=== PATIENT | female | born 1935 | race Caucasian/White ===

== ENCOUNTER 2022-11-15 14:19 | Emergency (ER) | payer OTHER, SELFPAY ==
[2022-11-15 14:35] VITALS: BP 93/61; PULSE 69; RESP 18; O2SAT 99
--- NOTE | 2022-11-15 15:09 | ED.GENADUL_ITS ---
Discharge Plan Disposition Patient Disposition: Home Condition: Stable Discharge Details Clinical Impression: Pain, dental, Homelessness ED Provider: Mando Bocanegra Home Meds and New Rx's Prescriptions: New penicillin V potassium 500 mg tablet 500 mg PO QID Qty: 40 0RF Continued diltiazem HCl 360 mg capsule,extended release 24hr 360 mg PO 1XD Patient Comments: take 1 capsule (360MG TOTAL) by mouth once daily metoprolol succinate 25 mg Tablet Extended Release 24 Hr 25 mg PO 2XD Eliquis 2.5 mg Tablet 2.5 mg PO 2XD Discharge Instructions Instructions: Toothache (ED) Additional Instructions: If you are going to be relocating to the area, please establish care with a primary care physician. Please follow-up with a dentist regarding your dental pain. Take full course of antibiotic as prescribed. Return to the ER immediately for any worsening or new concerning symptoms. Discharge Data Discharge Date/Time-TO BE ENTERED AT DEPARTURE: 11/15/22 16:07 Medical Decision Making 87-year-old female here with dental pain. Patient has had dental infections in the past. Plan to initiate treatment with penicillin. I have advised the patient to follow-up with her dentist or establish care in the area if she is going to be relocating here. Patient is homeless and recently arrived in this area. She has been plugged in with community resources. Care management is aware of case and working with community resources. Patient has no additional complaints or requests. Plan for discharge with outpatient follow-up. Disposition decision was made weighing the risks and benefits of hospitalization versus outpatient treatment, the risk for further decompensation, and the patient's wishes. The patient was stable and requested discharge. Prior to discharge, my usual and customary return precautions were reviewed with the patient - this included follow-up instructions and reason to return to the emergency department if co ndition worsens, does not improve as expected, or other new concerns arise. HPI General Mode of arrival: ambulatory . Date/Time Provider Initiated Documentation: 11/15/22 14:39 . Limitations to Documentation: no limitations . Information obtained by: patient . HPI Narrative: 87-year-old female presents with chief complaint of dental pain. Patient notes she is a dental pain persistent over the past week. She states she has had dental infections in the past that responded to antibiotics. Patient requesting prescription for antibiotics. She has no other complaint. Patient is homeless at this time. She is plugged in with community resources. Related Data Home Medications Medication Instructions Recorded Confirmed apixaban 2.5 mg tablet (Eliquis) 2.5 mg PO 2XD 11/15/22 11/15/22 diltiazem HCl 360 mg 360 mg PO 1XD 11/15/22 11/15/22 capsule,extended release 24 hr metoprolol succinate 25 mg 25 mg PO 2XD 11/15/22 11/15/22 tablet,extended release 24 hr penicillin V potassium 500 mg 500 mg PO QID #40 tabs 11/15/22 tablet Previous Rx's Medication Instructions Recorded penicillin V potassium 500 mg 500 mg PO QID #40 tabs 11/15/22 tablet General Stated Complaint: GenMedical LAQUITA: 4 Review of Systems Constitutional Constitutional: Denies fever(s) Cardiovascular Cardiovascular: Denies dyspnea Respiratory Respiratory: Denies dyspnea Gastrointestinal Gastrointestinal: Denies abdominal pain PFSH All Active Problems Pain, dental (Acute) Homelessness (Acute) Social History Smoking risk assessment performed?: No Exam Const General: cooperative and no acute distress HENMT Head: atraumatic Mouth: moist mucous membranes Teeth and gingiva: poor dentition Throat: posterior oropharynx normal, tonsils normal and uvula midline Other: No fluctuance; no trismus Eyes Conjunctivae: normal conjunctivae Sclera: normal sclerae Neck Neck: supple Resp Auscultation: clear to auscultation bilaterally, no rales, no rhonchi and no wheezes Cardio Rate: regular rate and not tachycardic Rhythm: regular rhythm Skin General skin exam: no rashes or lesions noted Neuro General: patient alert, patient awake, patient oriented x3 and tone normal Cognition: normal cognition Extrem General: no edema Psych Appearance: grossly normal Mental Status: mental status grossly normal Course Vital Signs Vital signs: Vital Signs Pulse 69 11/15/22 14:35 Respiratory Rate 18 11/15/22 14:35 Blood Pressure 93/61 L 11/15/22 14:35 Pulse Oximetry 99 11/15/22 14:35 Temperature Source Skin 11/15/22 14:35 Pulse 69 11/15/22 14:35 Respiratory Rate 18 11/15/22 14:35 Blood Pressure 93/61 L 11/15/22 14:35 Blood Pressure Position Sitting 11/15/22 14:35 Pulse Oximetry 99 11/15/22 14:35 Oxygen Delivery Method Room Air 11/15/22 14:35 Oxygen Flow Rate 0 11/15/22 14:35 Pain Level 0 11/15/22 14:35
[2022-11-15] MEDS: Penicillin V POTASSIUM 500 MG TAB PO (16:00)
--- NOTE | 2022-11-15 16:03 | CMPROGNOTE_ITS ---
Date of service: 11/15/22 Time of Service: 16:03 Care Management Progress Note Progress Note Text Progress Note Text: [facility] brings Kristina to [facility] ED for medical clearance. The plan is for [facility] to assess her and to make a referral to a crisis bed, if patient is deemed appropriate. Judith, [facility] Crisis Screener, comes to the hospital to assess Kristina but patient refuses to speak with her so assessment can not be completed. Patient is discharged from the ED as she is medically cleared. Prior to Judith's arrival at the hospital, CHAR along with Jade, charge nurse, and Jax (?), the [facility] employee who transported Kristina to the hospital, contact Jacob Haroon of [facility] by telephone to further discuss plan if she is found inappropriate for a crisis bed. Jacob Patiño advises to ask patient where she would like to go and to act according to her wishes, as she is her own person and makes her own decisions. When CHAR meets with Kristina, she demands to know why [facility] left her at the hospital and makes it quite clear that she does not wish to remain at [facility]. Together we contact [facility] but are unable to connect with Jax. At patient's request, CHAR arranges a ride to [facility] via [employer].
--- NOTE | 2022-11-15 16:03 | PDOC.CMPRO ---
Date of service: 11/15/22 Time of Service: 16:03 Care Management Progress Note Progress Note Text Progress Note Text: [facility] brings Kristina to [facility] ED for medical clearance. The plan is for [facility] to assess her and to make a referral to a crisis bed, if patient is deemed appropriate. Judith, [facility] Crisis Screener, comes to the hospital to assess Kristina but patient refuses to speak with her so assessment can not be completed. Patient is discharged from the ED as she is medically cleared. Prior to Judith's arrival at the hospital, CHAR along with Jade, charge nurse, and Jax (?), the [facility] employee who transported Kristina to the hospital, contact Jacob Haroon of [facility] by telephone to further discuss plan if she is found inappropriate for a crisis bed. Jacob Patiño advises to ask patient where she would like to go and to act according to her wishes, as she is her own person and makes her own decisions. When CHAR meets with Kristina, she demands to know why [facility] left her at the hospital and makes it quite clear that she does not wish to remain at [facility]. Together we contact [facility] but are unable to connect with Jax. At patient's request, CHAR arranges a ride to [facility] via [employer].
== END 2022-11-15 16:07 | disposition home or self-care (01) ==
PROVIDERS: Emergency Provider Student in an Organized Health Care Education/Training Program
DX: Z59.00 Homelessness unspecified (principal); R68.84 Jaw pain
CPT/HCPCS: 99283

== ENCOUNTER 2022-12-23 17:33 | Emergency (ER) | payer OTHER, SELFPAY ==
--- NOTE | 2022-12-23 17:40 | ED.GENADUL_ITS ---
Discharge Plan Disposition Patient Disposition: Home Condition: Good Discharge Details Clinical Impression: Chronic dental infection ED Provider: Gurwinder Cash Nimitz Meds and New Rx's Prescriptions: Continued penicillin V potassium 500 mg tablet 500 mg PO QID Qty: 40 0RF diltiazem HCl 360 mg capsule,extended release 24hr 360 mg PO 1XD Patient Comments: take 1 capsule (360MG TOTAL) by mouth once daily metoprolol succinate 25 mg Tablet Extended Release 24 Hr 25 mg PO 2XD Eliquis 2.5 mg Tablet 2.5 mg PO 2XD Discharge Instructions Additional Instructions: You were seen requesting penicillin due to chronic dental infection. 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 It is imperative that you find a primary care as well as dental care if you are going to stay in the area. You should return to ED if you develop fever, difficulty breathing, inability to swallow or open mouth. Medical Decision Making Patient presenting to ED requesting penicillin for dental/mouth pain which she has had previously. She was here in October with same complaint. She will not allow vital signs to be performed. She did allow me to at least look in her mouth has no obvious swelling, abscess but there is poor dentition. She is in no distress. Breathing is normal. I cannot exclude a dental infection so reasonable to start her on penicillin given her complaint of pain and poor dentition. She does continue to not have primary care or dental care since moving to the area back in October. She had been referred to case management previously. She is encouraged to obtain primary care and dental care in the area or if she is staying. HPI General Mode of arrival: EMS . Date/Time Provider Initiated Documentation: 12/23/22 17:40 . Information obtained by: patient . HPI Narrative: Patient presents to ED by EMS with request for penicillin to treat recurrent mouth infection. Patient would not allow nursing to obtain vital signs. Patient reports that it is not any one particular tooth but just pain involving all of her teeth and mouth. She states that he cannot see it at all but that the pain has been worsening since she finished penicillin prescribed for her back in October. She does not answer other questions. She does state that she has a history of atrial fibrillation. Related Data Home Medications Medication Instructions Recorded Confirmed apixaban 2.5 mg tablet (Eliquis) 2.5 mg PO 2XD 11/15/22 11/15/22 diltiazem HCl 360 mg 360 mg PO 1XD 11/15/22 11/15/22 capsule,extended release 24 hr metoprolol succinate 25 mg 25 mg PO 2XD 11/15/22 11/15/22 tablet,extended release 24 hr penicillin V potassium 500 mg 500 mg PO QID #40 tabs 12/23/22 tablet Previous Rx's Medication Instructions Recorded penicillin V potassium 500 mg 500 mg PO QID #40 tabs 12/23/22 tablet General LAQUITA: 4 Review of Systems Narrative: Does not answer PFSH All Active Problems (Updated 12/23/22 @ 18:08 by Gurwinder Cash MD) Chronic dental infection (Acute) Medical History (Updated 12/23/22 @ 18:08 by Gurwinder Cash MD) Atrial fibrillation Social History (Updated 12/23/22 @ 18:01 by Gurwinder Cash MD) Smoking risk assessment performed?: No Housing: other Details: currently living in hotel Exam Narrative Exam Narrative: Const: WDW[facility] elderly female in [facility]. HEENT: NC/AT. Normal facial exam. No facial swelling or erythema. Poor dentition in general. No obvious abscess. Neck: Supple. Trachea midline. Lungs: Normal respiratory effort. Neuro: A+O x 3. Normal speech, mentation, gait. Cranial nerves II - XII grossly intact. No gross motor or sensory deficit. Ext: No C/C/E. Skin: Warm and dry without rash.
--- NOTE | 2022-12-23 17:44 | NUR.NOTE ---
Nursing Note: This attempted to conduct triage. Pt began yelling and stated get the doctor, you are not the doctor! Pt refused vitals.
[2022-12-23] MEDS: Penicillin V POTASSIUM 500 MG TAB, 4 TABS/BTL PO (18:22)
--- NOTE | 2022-12-24 09:32 | NUR.NOTE ---
Patient requesting information on her prescription that was [place] to [facility] [place]
--- NOTE | 2022-12-24 14:10 | NUR.NOTE ---
Nursing Note:In patients chart for and full name for [facility] prior to coming to assess.
== END 2022-12-23 22:09 | disposition home or self-care (01) ==
LOC: ER 18:27
PROVIDERS: Emergency Provider Emergency Medicine
DX: K04.7 Periapical abscess without sinus (principal)
CPT/HCPCS: 99283; 99284

== ENCOUNTER 2022-12-24 15:17 | Emergency (ER) | payer OTHER, SELFPAY ==
--- NOTE | 2022-12-24 15:30 | NUR.NOTE ---
Nursing Note: Patient was discharged from here last night for a medical problem. After discharge patient refused to leave facility. Myself as ED charge nurse and Asha as warehouse director spoke with patient this morning about her options. We informed her that there was no medical reason for her to be here. Patient is homeless. We reached out to care management and [employer]. Care management offered to pay for a taxi to transport her somewhere locally. Economic services and [facility] have dealt with patient about her homelessness. Patient is blind. She previously advised [address] that she was independent. The only thing she would need would be for someone explain the layout of the motel room. While at 4 different motels she demanded staff to help her with her ADLs. [address] stated that they would be willing to provide a motel room if she had someone to stay with her. Patient does not have any friends. Family refuses to help her. Per request of senior oracle database administrator police communications dispatcher today, [facility] asked to evaluate patient to rule out any mental health reasons for her refusing to leave. Throughout the day patient has been demanding staff assist her with her belongings, charging her phone. I informed patient that staff have their primary jobs to do. She is not a patient here and is welcome to leave. We would pay for the taxi trip anywhere locally. Patient becomes very upset yelling at me that i am not listening to her. I have explained numerous times that we are attempting to find placement for her. However she has declined all options. 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 I spoke to patient again about her behavior and to please stop yelling. Patient has been kept up to date on finding her placement. Each time patient yells at myself and Asha. While on the phone with [employer], patient stated that they were lying about her needing help with her ADLs. Patient continued to focus on the conversation with [address] when myself and Asha spoke with patient about speaking with mental health. Patient yelled at us for not helping her. Patient also has a cell phone. I asked if she could contact anyone to come get her. She yelled at me about her being blind and unable to use it. Later in the day i spoke with her about a taxi coming to bring her to the pharmacy and anywhere else locally. She agreed to a ride to the pharmacy. She requested I give her the phone number to [facility] so she could call them later from her phone.
--- NOTE | 2022-12-24 16:46 | W.ED.GENAD ---
Discharge Plan Discharge Details Chief Complaint: PsychEval Primary Care Provider: Unknown,Unknown ED Provider: Anderson Dietrich Home Meds and New Rx's Prescriptions: No Action penicillin V potassium 500 mg tablet 500 mg PO QID Qty: 40 0RF diltiazem HCl 360 mg capsule,extended release 24hr 360 mg PO 1XD Patient Comments: take 1 capsule (360MG TOTAL) by mouth once daily metoprolol succinate 25 mg Tablet Extended Release 24 Hr 25 mg PO 2XD Eliquis 2.5 mg Tablet 2.5 mg PO 2XD Medical Decision Making 87-year-old lady was seen nearly in the emergency department discharge. Patient unwilling to the hospital premises. Patient needs to be read registered for psychiatric evaluation in the emergency department. She is 87 years old, homeless, has had over 70 emergency department visits in various hospitals in the area. Has there is restraining orders against her by various hospitals as well as the airport in [place]. Patient is blind and homeless. It is unclear to me how she got to the [facility]. Psychiatric evaluation pending 6:30 PM. The patient has been evaluated by mental health. Appears that this is all a behavioral issue. Patient is well-known to this service. The plan at this point is for the patient to be given 2 options: A respite bed for discharge and removed from the premises. I have asked that the respite bed be found for the patient and if she refuses to go to the respite bed then at least 1 week call the police she can be removed from the grounds and escorted by police to the respite bed. If she refuses the respite once she is there then I believe that we have exhausted all of our resources. HPI General Date/Time Provider Initiated Documentation: 12/24/22 16:46. HPI Narrative: Mrs. Gonzalez is an 87-year-old lady who was discharged earlier from the emergency department. She waited in the waiting room, refusing to breathing the hospital property ground, stating that the hospital was under the obligation of making sure that we had transportation to local pharmacy where she could cigar packer and picker her prescriptions, and then be transported initially to [place] [id number] and then she changed her mind and wanted to be transported as close as possible to [facility]. The reason to go to [facility] is to be transported to [place] where she can go see her son. She does not have any medical complaints. She was reregistered for the sake of a mental health evaluation after nursing vendor quality supervisor contacted the junior linux administrator on-call who then contacted the hospital you lower your who requested that the patient have a psych evaluation. Related Data Home Medications Medication Instructions Recorded Confirmed apixaban 2.5 mg tablet (Eliquis) 2.5 mg PO 2XD 11/15/22 12/24/22 diltiazem HCl 360 mg 360 mg PO 1XD 11/15/22 12/24/22 capsule,extended release 24 hr metoprolol succinate 25 mg 25 mg PO 2XD 11/15/22 12/24/22 tablet,extended release 24 hr penicillin V potassium 500 mg 500 mg PO QID #40 tabs 12/23/22 12/24/22 tablet Previous Rx's Medication Instructions Recorded penicillin V potassium 500 mg 500 mg PO QID #40 tabs 12/23/22 tablet General Stated Complaint: PsychEval LAQUITA: 2 PFSH All Active Problems (Updated 12/23/22 @ 18:08 by Gurwinder Cash MD) Chronic dental infection (Acute) Medical History (Updated 12/23/22 @ 18:08 by Gurwinder Cash MD) Atrial fibrillation Social History (Updated 12/23/22 @ 18:01 by Gurwinder Cash MD) Smoking risk assessment performed?: No Housing: other Details: currently living in hotel Additional Social history: homeless Course Vital Signs Vital signs: Respiratory Effort Normal, Non-Labored 12/24/22 15:29
[2022-12-24 18:28] VITALS: BP 118/80; PULSE 72; TEMP 37.2; O2SAT 97
[2022-12-24] MEDS: Penicillin V POTASSIUM 500 MG TAB 1000 MG PO (19:07)
--- NOTE | 2022-12-24 19:13 | NUR.NOTE ---
given her penicillin and tuna sandwich and water. mental health is with her at this time.. Nursing Note:
--- NOTE | 2022-12-24 23:01 | PDOC.MHCN_ITS ---
Date of service: 12/24/22 Time of Service: 18:35 Mental Health Emergency Note Release [facility] release signed:: Yes Reason for Visit Homeless, client reported she needed medication for her mouth. In the last 2 weeks has the pt presented for ES prior to today?: No (No, but she was at [facility] on 11/15/22. ) Client Information Client is: New (She refused to engage with services when offered.) Risk: Does risk to harm exist?: No Asssessment/Mental Status Appearance: Disheveled Attitude: Demanding Behavior: Agitated Speech: Loud Affect: Other (Her demeanor softened a bit when she had food. ) Mood: Irritable, Angry and Other (did not answer. ) Thought process: Circumstational Hallucinations: No evidence Delusions: yes, Quaker and Persectory/Paranoid Attention: Unremarkable Perception: Not impaired Memory: Impaired in: (Difficult to assess.) Recent Insight: Poor Judgement: Poor Neurovegetative Symptoms Appetitie: No change (Would not answer. She ate a tuna sandwich and asked for more food. ) Additional Issues: Assaultive/Threatening Behavior: Yes Medical Concerns: No Client engaged in active self harm w/weapon: No Threatening to run away: No Voluntarily presenting for services: Yes Domestic violence is a concern: No Extreme Psychosis or extreme behavior is present: No Impression [facility] was asked to do a mental health screening for Kristina Gonzalez on 12/24/22. 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 A previous [facility] note stated that she has stayed at hospitals over one hundred times this year. She demands people do things for her, she does not answer questions to facilitate engagement with services, and she refuses assistance. She is willfull, stubborn and belligerent. She stated she wants to go to [facility] to fly to [place] to go see her son. Her son is ill. She stated that her 's estate needs to be settled in [place], [place]. She is distrustful and accusatory. She threatens to call resources (police, management) if she is dissatisfied or does not get what she wants. She knew the day and date during the MSE. Resources Reosurces reviewed and given:: Other (A care bed was discussed with Kristina. She is open to the idea. ) Plan/Disposition Recommended Disposition: Crisis bed, No. Plan: Adult Protective Services was called. The Agency of Human Services was called. Referrals to Care Beds are being made so that she has a place to go. Services need to include information and possible assistance regarding her visual impairment. Person reported agreement to plan: Yes Reports/communication Outcome discussed with: ED/Personnel (Dr. Abrams and Dr. Cash, and Nurse Aishwarya. )
--- NOTE | 2022-12-24 23:29 | PDOC.MHCN ---
Date of service: 12/24/22 Time of Service: 18:35
--- NOTE | 2022-12-25 07:59 | W.EDPROG ---
Date of service: 12/25/22 Time of Service: 07:59 Medical Decision Making Patient was signed out to me by my colleague Dr. Dietrich. Please refer to his HPI, physical exam and assessment and plan. Patient is currently here on a social component. She has been evaluated medically twice and there is no evidence of medical complication or pathology at this time. However she has a notably challenging social scenario. Patient is from [place], over the last month she has been going from hospital to hospital, and each time there is been no evidence of medical need, however she is been refusing admissions, places to stay, and other mental health social worker. She is often given a cab voucher by various institutions and allowed to then travel for which she then travels to a new town with a new hospital. She has been banned from certain regional airport secondary to behavior. She is currently here at [facility]. human services supervisor over the last 2 to 3 days have been involved with the patient, psychiatric services have also been involved. They have deemed the patient mentally clear and stable. They state that the patient's notably abrasive personality is reflective of personality and behavior choices and not reflective of dementia or psychosis. Plan at time of signout is that a care bed scenario will be sought out for the patient. She has been refusing admission and care bed placement, however the patient will be given a care better option, and per administrations recommendation if she still continues to refuse this after a care bed has been found she will then be escorted off the premises as a case of trespassing and then delivered by [facility] police to the care bed that has been found for her. If she continues to refuse to utilize that resource of the care bed then it would be on her at that point. This was the recommendation by mental health, and administrative services here yesterday per the signout physician. Patient was stable throughout the night and required no interventions. No care bed was found throughout the night and they are still searching. Patient will be signed out to my colleague for disposition once care bed is found. Throughout the night we did care for the patient's needs. We did feed her multiple times at every request that she had. She was brought to the bathroom by our assistance as well. No complications or other interventions needed otherwise. 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 She has been to several emergency departments within the area in the past few months. She has actually been on a long trespass list for several the hospitals as well as [facility] she was seen in the emergency department last night and this morning refused to leave. Hospital diesel powerplant mechanic was contacted by administration who recommended a psych evaluation. Patient was seen by psychiatry who believes that this is all behavioral in etiology. At this point there are 2 options she will be offered a respite bed for discharge from the hospital. If she refuses a respite bed, then she can be escorted to that place and then we would have exhausted all the resources. Last updated by Anderson Dietrich MD at 12/24/22 19:44 Discharge Plan Discharge Details Chief Complaint: PsychEval Primary Care Provider: Unknown,Unknown ED Provider: Javier Abrams Home Meds and New Rx's Prescriptions: No Action penicillin V potassium 500 mg tablet 500 mg PO QID Qty: 40 0RF diltiazem HCl 360 mg capsule,extended release 24hr 360 mg PO 1XD Patient Comments: take 1 capsule (360MG TOTAL) by mouth once daily metoprolol succinate 25 mg Tablet Extended Release 24 Hr 25 mg PO 2XD Eliquis 2.5 mg Tablet 2.5 mg PO 2XD
[2022-12-25 08:09] VITALS: RESP 18
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
--- NOTE | 2022-12-25 09:42 | NUR.NOTE ---
Nursing Note:Patient standing in the waiting screaming at staff, demanding for staff to make phone calls for her.Patient stated she does not want to speak with mental health. she wants staff to call and pay for a ride to [place].
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
--- NOTE | 2022-12-25 10:49 | NUR.NOTE ---
Nursing Note: Patient initially on the phone refusing to return to her room. Patient left facility. Patient is standing just outside dept. Refusing to return. Dr. Garza, myself, security and general warehouse worker with patient. Patient refusing to return. spoke with patient about the risks for her to leave. Patient offered us to help her wiht somewhere safe for her to be as well as get her prescription from [facility]. Patient is outside being disruptive. Per Dr. Lawson staff is to return to the dept. [facility] contacted. Dispatch was not sure of how they were able to help. Patient grabbed DI tech by the arm demanding she assist patient of hospital grounds.
--- NOTE | 2022-12-25 11:12 | NUR.NOTE ---
Nursing Note: Patient has eloped from the dept
== END 2022-12-25 11:11 | disposition left against medical advice (07) ==
PROVIDERS: Emergency Provider Emergency Medicine
DX: Z59.00 Homelessness unspecified (principal)
CPT/HCPCS: 99283

== ENCOUNTER 2022-12-25 13:06 | Inpatient (IN) | payer OTHER, SELFPAY ==
--- NOTE | 2022-12-25 13:15 | DI.RAD_ITS ---
Exam(s) XR CHEST 1V IN DI DEPT EXAM: XR CHEST 1V IN DI DEPT exam is limited by poor pulmonary inflation. The left diaphragm is mil dly elevated. CLINICAL HISTORY: ams TECHNIQUE: 2D digital imaging was performed. COMPARISON: No exams were available for comparison FINDINGS: LUNGS: Clear. No pleural abnormality seen. HEART: Normal size. AORTA: Normal diameter. BONES: Scoliosis and degenerative changes. Soft tissues: Unremarkable. IMPRESSION: No acute findings. DATA REPOSITORY: RADIATION DOSE DELIVERED:
[2022-12-25] MEDS: Haloperidol 5 MG/ML VIAL 2 MG IM (13:20)
--- NOTE | 2022-12-25 13:37 | W.ED.GENAD ---
Discharge Plan Discharge Details Chief Complaint: AMS/LOC Primary Care Provider: Unknown,Unknown ED Provider: Scar Garza Home Meds and New Rx's Prescriptions: No Action penicillin V potassium 500 mg tablet 500 mg PO QID Qty: 40 0RF diltiazem HCl 360 mg capsule,extended release 24hr 360 mg PO 1XD Patient Comments: take 1 capsule (360MG TOTAL) by mouth once daily metoprolol succinate 25 mg Tablet Extended Release 24 Hr 25 mg PO 2XD Eliquis 2.5 mg Tablet 2.5 mg PO 2XD Medical Decision Making 87-year-old female history of A-fib, was evaluated yesterday in the setting of homelessness. Patient endorses attempting to return to [place] to be with her son. Attempts to contact family were unsuccessful. Patient was evaluated by mental health screener associated with [facility]. Patient had no SI no HI no signs of psychosis and her presentation was deemed to be behavioral. An attempt was being made to obtain outpatient resources and respite bed given her age comorbidities and homelessness state. Patient repeatedly complaining about being held against her will and did not want to be here in the emergency department. Patient eloped from emergency department earlier this morning/afternoon. Patient was counseled extensively to return to the emergency department to allow us to coordinate her outpatient care we expressed her concerns for her safety given her age blindness and anticoagulant state. Again patient refused further assistance/evaluation. Given her alertness, mental status, not intoxicated state with no active psychiatric issues patient deemed competent. However over the course of several hours this morning and afternoon patient was seen wandering in the street at times crawling on her hands and knees screaming at passerby's and staff. Patient was approached by multiple staff members encouraging her to return for her own safety. Patient continued to walk in traffic and scream out at her surroundings. He has become increasingly evident over the past several hours the patient is at high risk for injury although not intentional patient has either low concern or limited conception of potential risks. For her safety and the safety of others she has been brought back into the emergency department, physically and chemically restrained. An extensive work-up was not performed upon her initial evaluation given her age and comorbidities I will obtain basic labs, CT head, screening x-ray, urine toxicology and UA; [facility] has been called again for reevaluation patient currently poorly compliant with their interview. Disposition will likely require hospitalization for coordination of placement pending results and reassessment Patient sustained superficial skin tear to dorsum of right hand during restraint as she was physically combative with staff. 14: 29 patient resting comfortably, on pulse oximeter saturating normally. Patient will be taken out of four-point restraints and bilateral rails on bed will be placed in the upright position. Awaiting labs and imaging results. [facility] has reached out to multiple organizations and attempt to find a care bed for patient. 15: 59 hand skin tear/laceration repaired with Steri-Strips and surgical glue as patient refused sutures. Wound anesthetized with L ET gel, irrigated extensively with sterile normal saline. Hemostatic no foreign body. Patient currently resting comfortably no acute distress. 19: 16 patient resting relatively comfortably intermittently yelling/screaming at staff however redirectable after several minutes not requiring any further sedation or restraints. Awaiting follow-up evaluation and recommendations from [facility]. Patient has been medically cleared. HPI General Date/Time Provider Initiated Documentation: 12/25/22 13:24. HPI Narrative: 87-year-old female history of A-fib, was evaluated yesterday in the setting of homelessness. Patient endorses attempting to return to [place] to be with her son. Attempts to contact family were unsuccessful. Patient was evaluated by mental health screener associated with [facility]. Patient had no SI no HI no signs of psychosis and her presentation was deemed to be behavioral. An attempt was being made to obtain outpatient resources and respite bed given her age comorbidities and homelessness state. Patient repeatedly complaining about being held against her will and did not want to be here in the emergency department. Patient eloped from emergency department earlier this morning/afternoon. Patient was counseled extensively to return to the emergency department to allow us to coordinate her outpatient care we expressed her concerns for her safety given her age blindness and anticoagulant state. Again patient refused further assistance/evaluation. Given her alertness, mental status, not intoxicated state with no active psychiatric issues patient deemed competent. However over the course of several hours this morning and afternoon patient was seen wandering in the street at times crawling on her hands and knees screaming at passerby's and staff. Patient was approached by multiple staff members encouraging her to return for her own safety. Patient continued to walk in traffic and scream out at her surroundings. He has become increasingly evident over the past several hours the patient is at high risk for injury although not intentional patient has either low concern or limited conception of potential risks. For her safety and the safety of others she has been brought back into the emergency department, physically and chemically restrained. Related Data Home Medications Medication Instructions Recorded Confirmed apixaban 2.5 mg tablet (Eliquis) 2.5 mg PO 2XD 11/15/22 12/25/22 diltiazem HCl 360 mg 360 mg PO 1XD 11/15/22 12/25/22 capsule,extended release 24 hr metoprolol succinate 25 mg 25 mg PO 2XD 11/15/22 12/25/22 tablet,extended release 24 hr penicillin V potassium 500 mg 500 mg PO QID #40 tabs 12/23/22 12/25/22 tablet Previous Rx's Medication Instructions Recorded penicillin V potassium 500 mg 500 mg PO QID #40 tabs 12/23/22 tablet General Stated Complaint: AMS/LOC LAQUITA: 2 Review of Systems Narrative: Review of Systems Constitutional: negative Eyes: negative ENT: negative Cardiovascular: negative Respiratory: negative Gastrointestinal: negative : negative Musculoskeletal: negative Skin: negative Neurologic: negative Psych: negative PFSH All Active Problems Chronic dental infection (Acute) Homelessness (Acute) Medical History (Updated 12/23/22 @ 18:08 by Gurwinder Cash MD) Atrial fibrillation Social History (Updated 12/23/22 @ 18:01 by Gurwinder Cash MD) Smoking/Tobacco Use Status: Never Smoking risk assessment performed?: Yes Drug use: Never Substance use type: does not use Housing: other Details: currently living in hotel Additional Social history: patient homeless Exam Narrative Exam Narrative: Physical Examination General: alert, awake, uncooperative, combative, screaming HEENT: normocephalic, atraumatic; PERRL, EOM intact, conjunctiva normal; no nasal discharge; moist mucous membranes, oral and pharyngeal mucosa normal, tolerating secretions Neck: supple, trachea midline; full ROM Chest: normal to inspection Respiratory: normal respiratory effort, speaking in full sentences, clear to auscultation, no wheezing, rales or rhonchi Cardiac: regular rate, regular rhythm, S1S2 intact, no murmurs rubs or gallops GI: abdomen soft, non-tender, non-distended; no palpable mass or hepatosplenomegaly Skin: Superficial skin tear to dorsum of right hand Neuro: Alert, interactive, moving all extremities, ambulatory without ataxia Extremities: Moving all extremities Psych: Aggressive, screaming Course Vital Signs Vital signs: Comment Pt unable to follows commands during triage. 12/25/22 13:29 Procedures Laceration Laceration 1: Site: hand Side (If applicable): right Size (cm): 7 Description: linear and flap Depth: simple, single layer Local Anesthetic: other anesthetic (LET) Pre-repair: wound explored, irrigated extensively and deep structures intact Size (cm): other (steri strips, surgical glue) Restraint Face to Face Time of Face to Face Face to Face: Time of Face to Face: 14:51 Patient's Immediate Situation Requiring Restraints/Seclusion: Harm to Patient Patient Response to Restraints: Tolerating without Problems Patient's Medical & Behavioral Condition: Patient continues to be verbally aggressive however physical aggression has calm to significantly. Patient amenable to have railings placed in upright position, will discontinue four-point physical restraints Need for Continuation of Restraints Has Been Assessed: Restraints Terminated
[2022-12-25 13:42] VITALS: BP 114/82; PULSE 130; RESP 20; O2SAT 95
[2022-12-25 14:30] VITALS: PULSE 70; RESP 16
[2022-12-25 14:38] LABS: Abs Immature Grans 0.02 10^3/uL (0.0-0.06); Absolute Basophil Count 0.08 10^3/uL (0.0-0.2); Absolute Eosinophil Count 0.09 10^3/uL (0.0-0.7); Absolute Lymphocyte Count 1.49 10^3/uL (1.2-3.4); Absolute Monocyte Count 0.48 10^3/uL (0.1-0.8); Absolute Neutrophil Count 5.93 10^3/uL (1.2-6.7); Eosinophils % 1.1; HCT 43.2 % (36.0-46.0); HGB 14.5 g/dL (11.2-15.7); Immature Grans % 0.2; Lymphocytes % 18.4; MCH 28.4 pg (27.0-33.0); MCHC 33.6 % (32.0-36.0); MCV 85 fL (80-95); MPV 11.5 fL (8.0-11.0); Monocytes % 5.9; Neutrophils % 73.4; Platelet Count 192 10^3/uL (130-400); RBC 5.11 10^6/uL (3.93-5.22); RDW 13.5 % (11.7-14.6); RDW-SD 41.9 fL; WBC 8.09 10^3/uL (4.4-10.8)
--- NOTE | 2022-12-25 14:45 | DI.CT_ITS ---
Exam(s) CT HEAD WO EXAM: CT HEAD WO CLINICAL HISTORY: ams. TECHNIQUE: Imaging Protocol: Axial computed tomography images with coronal and sagittal reformatted images were created and reviewed COMPARISON: No exams were available for comparison FINDINGS: Ventricles and Extra axial spaces: Normal in size and morphology for the patient's age. Hemorrhage: None. Cerebral parenchyma: There is no evidence of an acute territorial infarct. There are areas of decrea sed attenuation in the white matter most consistent with small vessel ischemic disease. Midline shift: None. Brainstem/Cerebellum: Normal. Calvarium: Normal. Visualized Paranasal sinuses/Mastoids: Clear. Soft Tissues: Unremarkable. IMPRESSION: No acute intracranial process. RADIATION DOSE DELIVERED: 719.88mGy.cm Total DLP DATA REPOSITORY: All CT scans at this facility are submitted to the National Radiology Data Registry (NRDR) Dose Index Registry (DIR) with the [employer] (ACR). RADIATION OPTIMIZATION: All CT scans at this facility use at least one of these dose optimization te chniques: automated exposure control; mA and/or kV adjustment per patient size (includes targeted exa ms where dose is matched to clinical indication); or iterative reconstruction.
[2022-12-25 14:58] LABS: ALT 20 U/L (14-59); AST 16 U/L (15-37); Albumin 3.8 g/dL (3.4-5.0); Alkaline Phosphatase 82 U/L (46-116); Anion Gap 11.8 mmol/L (3-11); BUN 30 mg/dL (7-18); Bilirubin, Total 0.6 mg/dL (0.2-1.0); CO2 22.2 mmol/L (21.0-32.0); CREATININE 1.2 mg/dL (0.55-1.02); Calcium 9.3 mg/dL (8.5-10.1); Chloride 106 mmol/L (98-107); Estimated GFR 44.08 (mL/min/1.73m2); Glucose 166 mg/dL (74-106); Potassium 3.4 mmol/L (3.5-5.1); Sodium 140 mmol/L (136-145); TSH (W/Ref FT4) 2.79 uIU/mL (0.36-3.74); Total Protein 7.4 g/dL (6.4-8.2)
[2022-12-25 15:10] LABS: Bilirubin Small (Negative); Blood Negative (Negative); Clarity Sl Cloudy (Clear); Glucose Negative (Negative); Ketones Trace mg/dL (Negative); Leukocyte Esterase Trace (Negative); Nitrite Negative (Negative); Specific Gravity 1.025 (1.005-1.025); Urobilinogen 0.2 mg/dL (Up to 0.2)
[2022-12-25 15:16] LABS: *AMPHETAMINES SCREEN URINE Negative (Negative); *BARBITURATES SCREEN URINE Negative (Negative); *BENZODIAZEPINES SCREEN URINE Negative (Negative); Cannabinoids THC Negative (Negative); Cocaine Screen,Urine Negative (Negative); METHADONE URINE SCREEN Negative (Negative); OPIATES URINE SCREEN Negative (Negative)
[2022-12-25 15:17] LABS: Tricyclic Antidepressants Negative (Negative)
[2022-12-25 15:23] LABS: RBC 0-2 HPF (0-2); WBC 0-2 HPF (0-5)
[2022-12-25 15:24] LABS: Bacteria Few HPF (Negative); C & S Indicated? No/Sq. Contamination; Casts 5-10 Hyaline LPF (Negative); Crystals Many Calcium Oxalate HPF (Negative); Epithelial Cells Moderate HPF (Negative); Mucus Moderate (Negative)
--- NOTE | 2022-12-25 15:40 | DI.VRAD_ITS ---
PROCEDURE INFORMATION: Exam: XR Chest Exam date and time: 12/25/2022 3:13 PM Age: 87 years old Clinical indication: Other: AMS TECHNIQUE: Imaging protocol: Radiologic exam of the chest. Views: 1 view. COMPARISON: No relevant prior studies available. FINDINGS: Lungs: No consolidation. No Mass Pleural spaces: No pleural effusion. No pneumothorax. Heart/Mediastinum: Unremarkable Bones/joints: Degenerative changes of the thoracic spine. IMPRESSION: No acute cardiopulmonary disease Dictated and Authenticated by: Lennox Hammond MD. Ordering:BOUBACAR Abbott MD
--- NOTE | 2022-12-25 15:48 | NUR.NOTE ---
Nursing Note:Sent patient's prescription medications to [facility] pharmacy
--- NOTE | 2022-12-25 15:50 | DI.VRAD_ITS ---
PROCEDURE INFORMATION: Exam: CT Head Without Contrast Exam date and time: 12/25/2022 3:17 PM Age: 87 years old Clinical indication: Other: AMS TECHNIQUE: Imaging protocol: Computed tomography of the head without contrast. COMPARISON: No relevant prior studies available. FINDINGS: Brain: Bilateral periventricular white matter hypodensity consistent with small-vessel ischemic change. No intracranial hemorrhage. No evidence of acute ischemia. No mass or mass effect. Cerebral ventricles: Ventricles and sulci are appropriate for age. Paranasal sinuses: Visualized sinuses are unremarkable. No fluid levels. Mastoid air cells: Visualized mastoid air cells are well aerated. Bones/joints: Unremarkable. No acute fracture. Soft tissues: Unremarkable. IMPRESSION: No acute intracranial abnormalities Dictated and Authenticated by: Lennox Hammond MD. Ordering:BOUBACAR Abbott MD
--- NOTE | 2022-12-25 16:26 | NUR.NOTE ---
Nursing Note: 1625 repeatedly saying mino.
[2022-12-25 16:47] VITALS: RESP 16
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
--- NOTE | 2022-12-25 21:17 | PDOC.MHCN ---
Date of service: 12/25/22 Time of Service: 13:30 Mental Health Emergency Note Release [facility] release signed:: Yes Reason for Visit Homeless, client reported she needed medication for her mouth. In the last 2 weeks has the pt presented for ES prior to today?: No Client Information Client is: New (She refused to engage with services when offered.) Well Housed: No,status: Homeless Risk: Does risk to harm exist?: No Asssessment/Mental Status Appearance: Disheveled Attitude: Demanding (When approached, she yelled, Stay away from me. ) Behavior: Agitated (Sitting in hospital bed, demanded water and yelled for it numerous times. When she perceived a contrary statement, she loudly responded get away, you're drugged up, this is abuse. ) Speech: Loud and Other (Clear) Affect: Cogruent with mood Mood: Irritable, Angry and Other Thought process: Circumstational and Other (Delusional) Hallucinations: No evidence Delusions: yes, (She wanted to tell the governor, the president and Luis Wong about her concerns with medication. Suspicious. ) Spiritism and Persectory/Paranoid Attention: Unremarkable Perception: Not impaired Orientation: Disoriented in (Not able to assess. ) Time (Not able to assess. ) Memory: Impaired in: (Difficult to assess. ) Recent Insight: Poor (When someone said comment she perceived as false, she said You're all drugged up. ) Judgement: Poor (Laid in road. ) Neurovegetative Symptoms Appetitie: No change (Did not assess due to refusal to interact. ) Additional Issues: Assaultive/Threatening Behavior: Yes Medical Concerns: Yes Client engaged in active self harm w/weapon: No Threatening to run away: No Domestic violence is a concern: No Extreme Psychosis or extreme behavior is present: Yes Impression [facility] attempted to reassess Kristina Gonzalez on 12/25/22. 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 When this singer songwriter attempted to interact with Kristina, she yelled, Stay away from me loudly multiple times. She was left alone. She yelled for water multiple times. She was given water and when she drank it, and staff reported it was gone, she argued with staff. When she perceived a statement or action as contradictory, she said get away, sounds like you're drugged up. She wanted to the governor, the president and Luis Wong to know about her concerns with her medication. Earlier in the day, hospital staff reported she was disruptive and came out of her room. She called staff Marilynl's child and made requests to go to [place]. Later in the day, she decided to leave and went outside and sat on the grass. Hospital staff shared that she laid in the road with her head on the curb and feet in the road. She screamed at the it security analyst who stood nearby to assist. Resources [facility] reviewed and given:: Crisis Bed and Other (On 12/24/22 Kristina was open to the idea of a care bed. This was not revisited on 12/25 due to her agitated state.) Plan/Disposition Recommended Disposition: Crisis bed, facility contacted. Status of Crisis Bed acceptance: Other (Care bed/crisis bed facilities that had openings were contacted on 12/25. ). Plan: Adult Protective Services was called again on 12/25 with urgent request. The Agency of Human Services was called Monday. Person reported agreement to plan: Yes Facilities contacted if Applicable Other: Other (Care/crisis beds with openings were contacted on 12/25. No acceptance as of yet. ) Reports/communication Outcome discussed with: ED/Personnel (Dr. Mendoza)
--- NOTE | 2022-12-26 06:28 | ED.PROG_ITS ---
Date of service: 12/26/22 Time of Service: 06:28 Medical Decision Making I, Eulalio Mesa, took signout on this patient. In summary 87-year-old female who is homeless and blind as well as history of A-fib on Eliquis who presents with erratic behavior. Seen multiple times over the last few days. No SI or HI or signs of psychosis but at the last discharge the patient was walking and calling into the road and yelling at passerWorkface's. Deemed to be a safety concern for her own safety and brought back into the emergency department and sedated. Decision was made to have the [facility] services reevaluate the patient again tomorrow. No acute events overnight. Patient was erratic in her room but was easily redirectable back to her bed. I, Eulalio Mesa, signed out care to the oncoming team in the morning pending [facility] reevaluation. Medical Records Medical records reviewed: Yes I reviewed the patient's medical records. Lab Data Lab results reviewed: Yes I reviewed the patient's lab results. Sign Out Sign Out Data: Sign Out Comment: geriatric psych eval; homeless, blind; found wandering in traffic; medically cleared, awaiting [facility] recommendation for placement/respite bed v admission for prison placement Last updated by Scar Garza MD at 12/25/22 19:21 Discharge Plan Discharge Details Chief Complaint: PsychEval Primary Care Provider: Unknown,Unknown ED Provider: Eulalio Mesa Home Meds and New Rx's Prescriptions: No Action penicillin V potassium 500 mg tablet 500 mg PO QID Qty: 40 0RF diltiazem HCl 360 mg capsule,extended release 24hr 360 mg PO 1XD Patient Comments: take 1 capsule (360MG TOTAL) by mouth once daily metoprolol succinate 25 mg Tablet Extended Release 24 Hr 25 mg PO 2XD Eliquis 2.5 mg Tablet 2.5 mg PO 2XD
--- NOTE | 2022-12-26 07:42 | NUR.NOTE ---
Nursing Note: Pt becoming increasingly agitated, requesting to contact her niece Alma Beavers (telephone: [phone]). Information provided to charge nurse who advised contact has previously been made.
--- NOTE | 2022-12-26 08:28 | ED.PROG_ITS ---
Date of service: 12/26/22 Time of Service: 08:28 Medical Decision Making Care being transferred to Dr. Bocanegra given prior experience with pt. Sign Out Sign Out Data: Sign Out Comment: geriatric psych eval; homeless, blind; found wandering in traffic; medically cleared, awaiting [facility] recommendation for placement/respite bed v admission for skilled nursing placement Last updated by Scar Garza MD at 12/25/22 19:21 Sign Out Comment: Homeless and blind. Erratic behavior and wandering in traffic at last discharge attempt. Multiple visits. Pending [facility] human services re-e valuation. No acute events overnight. Last updated by Eulalio Mesa MD at 12/26/22 06:32 Discharge Plan Discharge Details Chief Complaint: PsychEval Primary Care Provider: Unknown,Unknown ED Provider: Gurwinder Seals Home Meds and New Rx's Prescriptions: No Action penicillin V potassium 500 mg tablet 500 mg PO QID Qty: 40 0RF diltiazem HCl 360 mg capsule,extended release 24hr 360 mg PO 1XD Patient Comments: take 1 capsule (360MG TOTAL) by mouth once daily metoprolol succinate 25 mg Tablet Extended Release 24 Hr 25 mg PO 2XD Eliquis 2.5 mg Tablet 2.5 mg PO 2XD
--- NOTE | 2022-12-26 08:32 | W.EDPROG ---
Date of service: 12/26/22 Time of Service: 08:32 Medical Decision Making Care was signed out by Dr. Seals. Patient medically screened and cleared prior to signout. Please see prior ED visit notes regarding ED course. Patient is currently here after found crawling in the parking lot into oncoming traffic. Patient initially refused treatment. She received antipsychotic yesterday. Patient is at risk of harming herself. She lacks decisional making capacity. She has poor judgment, irrational thought with delusions. She has demonstrated labile behavior with intermittent agitation. Obtained outside hospital records from [facility], ED provider note from 10/03/2022 notes prior history of borderline personality disorder. I have completed with patient for EE. [facility] has evaluated the patient and agrees. Awaiting for psychiatric evaluation. Patient's prescribed meds have been ordered. Sign Out Sign Out Data: Sign Out Comment: geriatric psych eval; homeless, blind; found wandering in traffic; medically cleared, awaiting [facility] recommendation for placement/respite bed v admission for tank terminal gauger placement Last updated by Scar Garza MD at 12/25/22 19:21 Sign Out Comment: Homeless and blind. Erratic behavior and wandering in traffic at last discharge attempt. Multiple visits. Pending [facility] human services re-evaluation. No acute events overnight. Last updated by Eulalio Mesa MD at 12/26/22 06:32 Sign Out Comment: signing out to Dr. Bocanegra Last updated by Gurwinder Seals MD at 12/26/22 08:31 Discharge Plan Discharge Details Chief Complaint: PsychEval Primary Care Provider: Unknown,Unknown ED Provider: Mando Bocanegra Home Meds and New Rx's Prescriptions: No Action penicillin V potassium 500 mg tablet 500 mg PO QID Qty: 40 0RF diltiazem HCl 360 mg capsule,extended release 24hr 360 mg PO 1XD Patient Comments: take 1 capsule (360MG TOTAL) by mouth once daily metoprolol succinate 25 mg Tablet Extended Release 24 Hr 25 mg PO 2XD Eliquis 2.5 mg Tablet 2.5 mg PO 2XD
--- NOTE | 2022-12-26 12:25 | PDOC.MHPN2 ---
Date of service: 12/26/22 Time of Service: 12:25 Mental Health Emergency Note Release [facility] release signed:: Yes Reason for Visit Client is reevaluated today at [facility] in person. In the last 2 weeks has the pt presented for ES prior to today?: Yes, presented at [facility] ED Client Information Client is: New Well Housed: No,status: Homeless Impression Client is declining inpatient treatment and so an EE was written. Please refer to that EE for more details. Plan/Disposition Recommended Disposition: Hospitalization facilities contacted. Reports/communication Outcome discussed with: ED/Personnel
--- NOTE | 2022-12-26 13:24 | NUR.NOTE ---
Nursing Note: Pt's belongings secured, following request to launder clothes. Pt states, while retrieving bags from corner of room to make sure you check my pockets before you wash them. Clothes and belongings sorted in the presence of Jacquie (ammunition storekeeper) in proximity of the moreira camera of the ED. Belongings further itemized by other ED staff: see documentation.
--- NOTE | 2022-12-26 13:26 | CMSP_ITS ---
Date of service: 12/26/22 Time of Service: 13:26 Care Management Safety Plan Status Status: Involuntary Reason for Wait Reason for Wait: Other (2nd Certification by Psychiatrist) Safety Plan Safety Plan: Chief Complaint: Kristina presented in the ED on 12/25/22, then eloped from the ED. She was subsequently seen walking into traffic and yelling at people who passed by. Patient was returned to the ED and assessed by [facility]. EE paperwork has been filed with [facility] and Kristina will remain at [facility] on involuntary status while she awaits a 2nd Certification by Psychiatrist. INVOLUNTARY FOR INPATIENT PSYCHIATRIC STABILIZATION. Safety plan has been established to meet the needs of the patient, and consideration of the care team, to adhere to patient goals, identify restrictions based on behavioral status, address nutrition, and determine allowed personal belongings, tools for hygiene and personal care. Determine level of activity including ambulation, level of supervision, visitors, and determine privileges based on behaviors and level of engagement by pt. SAFETY PLAN: 1. Will remain on SI/HI precautions. In Paper Clothes. 2. Will remain in room under direct supervision of one-on-one staff at all times provided by CPSO, DISTILLATION OPERATOR, CUSTOMER SUCCESS REPRESENTATIVE gauge and weigh machine operator. 3. May have paper cups, plates, finger foods as well as a cardboard spoon to eat meals with. Patient may request snacks and drinks during rounding. 4. Follow [facility] Management of the Admitted Behavioral Health Patient policy. 5. Comfort bath system only. 6. No personal belongings 7. Visitors: None. 8. Activities: Television and other activities at RN discretion. 9. Bathroom privileges with supervision 10. Phone: None at this time 11. Due to INVOLUNTARY status, patient is being held at [facility] by the Department of Mental Health ([facility]) until 2nd certification by [facility] Psychiatrist can be performed (within 24 hours). Staff will provide de-escalation support (CPI) as needed. If patient wishes to leave [facility], staff will contact [facility] Crisis Screener ([phone]) and On-Call Entertainment Centre Manager ([phone]) as soon as possible. In the event of elopement, notify [facility] Police ([phone]). Patient is currently involuntarily at [facility]. [facility] Frontline Senior Sales Compensation Analyst will continue seeking placement. Please contact the Evaluation Analyst Entertainment Centre Manager ([phone]) for any needed changes to Safety Plan. Safety plan has been provided to interdepartmental care team. Patient will be transported by award clerk at time of discharge.
--- NOTE | 2022-12-26 13:26 | PDOC.CMSAFE ---
Date of service: 12/26/22 Time of Service: 13:26 Care Management Safety Plan Status Status: Involuntary Reason for Wait Reason for Wait: Other (2nd Certification by Psychiatrist) Safety Plan Safety Plan: Chief Complaint: Kristina presented in the ED on 12/25/22, then eloped from the ED. She was subsequently seen walking into traffic and yelling at people who passed by. Patient was returned to the ED and assessed by [facility]. EE paperwork has been filed with [facility] and Kristina will remain at [facility] on involuntary status while she awaits a 2nd Certification by Psychiatrist. INVOLUNTARY FOR INPATIENT PSYCHIATRIC STABILIZATION. Safety plan has been established to meet the needs of the patient, and consideration of the care team, to adhere to patient goals, identify restrictions based on behavioral status, address nutrition, and determine allowed personal belongings, tools for hygiene and personal care. Determine level of activity including ambulation, level of supervision, visitors, and determine privileges based on behaviors and level of engagement by pt. SAFETY PLAN: 1. Will remain on SI/HI precautions. In Paper Clothes. 2. Will remain in room under direct supervision of one-on-one staff at all times provided by CPSO, RIPRAP PLACER, FINANCIAL DIRECTOR accounts receivable coordinator. 3. May have paper cups, plates, finger foods as well as a cardboard spoon to eat meals with. Patient may request snacks and drinks during rounding. 4. Follow [facility] Management of the Admitted Behavioral Health Patient policy. 5. Comfort bath system only. 6. No personal belongings 7. Visitors: None. 8. Activities: Television and other activities at RN discretion. 9. Bathroom privileges with supervision 10. Phone: None at this time 11. Due to INVOLUNTARY status, patient is being held at [facility] by the Department of Mental Health ([facility]) until 2nd certification by [facility] Psychiatrist can be performed (within 24 hours). Staff will provide de-escalation support (CPI) as needed. If patient wishes to leave [facility], staff will contact [facility] Crisis Screener ([phone]) and On-Call Director Card ([phone]) as soon as possible. In the event of elopement, notify [facility] Police ([phone]). Patient is currently involuntarily at [facility]. [facility] Frontline Websphere Process Server Developer will continue seeking placement. Please contact the Data Systems Analyst Director Card ([phone]) for any needed changes to Safety Plan. Safety plan has been provided to interdepartmental care team. Patient will be transported by sheriff sergeant at time of discharge.
--- NOTE | 2022-12-26 13:52 | NUR.NOTE ---
Nursing Note: PT requested to call the police as she feels she had money with her when she arrived. In her belongings there was only an ID, debit card, plane tickets and a hotel mckeon card. She requested to call 911. PT was given the portable hospital phone to make the call. I spoke with the police after the call and they stated if then needed further information from the patient they would call the ER. PT stated that she does not believe anyone in the hospital would steal from her but her money must be locked up in the administrations office. Per request of patient nursing auto rental supervisor was contacted for her request to speak with administration.
--- NOTE | 2022-12-26 14:12 | NUR.NOTE ---
Nursing Note: [facility] Notification that we received on this patient it showed that she had been to [place], [place] [address] times. With permission from Dr. Mando Bocanegra, I called the [facility] and asked for the medication list, past medical history and last discharge summary. I also told Britt from medical records that we had documentation that her last name may be Nakia. They did fax us information on this patient. Main # [phone] Fax medical records# [phone].
--- NOTE | 2022-12-26 15:44 | W.EDPROG ---
Date of service: 12/26/22 Time of Service: 15:45 Medical Decision Making Care transitioned to myself from Dr. Bocanegra, please see his note regarding history, presentation and exam. At the time I assumed care, second cert pending for EE. Patient resting in bed with 1:1 observer at bedside. Patient is tachycardic. Typically uses diltiazem metoprolol which he has not had as of yet today. These were ordered on a routine basis by Dr. Bocanegra prescription to start tomorrow, ordered one-time dosing of each currently for today. Heart rate within normal limits now. Patient continues to be resting comfortably. She was evaluated by mental health who advises that patient should continue with the involuntary admission and bed placement will be sought. Due to time of day, no bed is available at this time. Patient continues to rest comfortably. At the end of my shift, care transition to Dr. Mesa with bed placement at psychiatric facility pending. Sign Out Sign Out Data: Sign Out Comment: geriatric psych eval; homeless, blind; found wandering in traffic; medically cleared, awaiting [facility] recommendation for placement/respite bed v admission for watermaster placement Last updated by Scar Garza MD at 12/25/22 19:21 Sign Out Comment: Homeless and blind. Erratic behavior and wandering in traffic at last discharge attempt. Multiple visits. Pending [facility] human services re-evaluation. No acute events overnight. Last updated by Eulalio Mesa MD at 12/26/22 06:32 Sign Out Comment: signing out to Dr. Bocanegra Last updated by Gurwinder Seals MD at 12/26/22 08:31 Sign Out Comment: Follow-up on second certification. Reassess patient for disposition. Last updated by Mando Bocanegra MD at 12/26/22 15:30 Discharge Plan Discharge Details Chief Complaint: PsychEval Primary Care Provider: Unknown,Unknown ED Provider: Evelia Jaquez Home Meds and New Rx's Prescriptions: No Action penicillin V potassium 500 mg tablet 500 mg PO QID Qty: 40 0RF diltiazem HCl 360 mg capsule,extended release 24hr 360 mg PO 1XD Patient Comments: take 1 capsule (360MG TOTAL) by mouth once daily metoprolol succinate 25 mg Tablet Extended Release 24 Hr 25 mg PO 2XD Eliquis 2.5 mg Tablet 2.5 mg PO 2XD
--- NOTE | 2022-12-26 16:15 | RT.EKG_ITS ---
APPROVED REPORT Exam: Resting ECG Reason for Exam: elevated HR Patient Location: E HR:112 bpm ECG Measurements Heart Rate 112 AXIS MI [id number] P [id number] QRSd 78 QRS 69 QT 342 T 54 QTc 468 Conclusion Atrial flutter...A-rate [address] depression, diffuse leads...ST <-0.07mV, ant/lat/inf
[2022-12-26 16:18] VITALS: BP 128/83; PULSE 137; O2SAT 98
[2022-12-26] MEDS: Metoprolol CR 25 MG TABCR PO (17:02)
[2022-12-26] MEDS: dilTIAZem CD 180 MG CAPCR 360 MG PO (17:02)
[2022-12-26] MEDS: Penicillin V POTASSIUM 500 MG TAB PO ×2 (17:02→21:39)
[2022-12-26] MEDS: Apixaban 2.5 MG TAB PO (21:39)
--- NOTE | 2022-12-27 00:36 | NUR.NOTE ---
Walked pt to the restroom and talked to the pt in the room for a little while pt was pleasant and talked about family.
--- NOTE | 2022-12-27 01:19 | NUR.NOTE ---
In the room talking with patient. Late documentation due to calm conversation with pt.
--- NOTE | 2022-12-27 06:20 | W.EDPROG ---
Date of service: 12/27/22 Time of Service: 06:20 Medical Decision Making IEulalio, took signout on this patient. In summary 87-year-old female presents with behavioral issues. Long course and see previous notes. Ultimately the patient is an involuntary bed search for psychiatric bed placement. No acute events overnight. Still pending bed placement. IEulalio, have signed out care to the oncoming team pending psychiatric bed care placement. Medical Records Medical records reviewed: Yes I reviewed the patient's medical records. Sign Out Sign Out Data: Sign Out Comment: geriatric psych eval; homeless, blind; found wandering in traffic; medically cleared, awaiting [facility] recommendation for placement/respite bed v admission for exterminator helper termite placement Last updated by Scar Garza MD at 12/25/22 19:21 Sign Out Comment: Homeless and blind. Erratic behavior and wandering in traffic at last discharge attempt. Multiple visits. Pending [facility] human services re-evaluation. No acute events overnight. Last updated by Eulalio Mesa MD at 12/26/22 06:32 Sign Out Comment: signing out to Dr. Bocanegra Last updated by Gurwinder Seals MD at 12/26/22 08:31 Sign Out Comment: Follow-up on second certification. Reassess patient for disposition. Last updated by Mando Bocanegra MD at 12/26/22 15:30 Sign Out Comment: Care transitioned to Dr. Mesa with bed placement pending. Second cert has been completed, patient involuntarily admitted. Last updated by Evelia Jaquez PA at 12/26/22 23:10 Discharge Plan Discharge Details Chief Complaint: PsychEval Primary Care Provider: Unknown,Unknown ED Provider: Eulalio Mesa Home Meds and New Rx's Prescriptions: No Action penicillin V potassium 500 mg tablet 500 mg PO QID Qty: 40 0RF diltiazem HCl 360 mg capsule,extended release 24hr 360 mg PO 1XD Patient Comments: take 1 capsule (360MG TOTAL) by mouth once daily metoprolol succinate 25 mg Tablet Extended Release 24 Hr 25 mg PO 2XD Eliquis 2.5 mg Tablet 2.5 mg PO 2XD
[2022-12-27 07:02] VITALS: PULSE 88; O2SAT 96
--- NOTE | 2022-12-27 08:18 | ED.PROG_ITS ---
Date of service: 12/27/22 Time of Service: 08:00 Exam Narrative Exam Narrative: Exam; vitals signs as reported above Constitutional; In no acute distress, afebrile General: Agitated noncooperative, healthy appearing, comfortable and no acute distress HENMT: Head: normal to inspection, no palpable skull fracture and normocephalic Eyes: l: appearance normal, both eyes and all related structures ]Pupils: PERRL EOM: EOM intact bilaterally Direct ophthalmoscopy: normal light reflex, normal conjunctiva, normal visual acuity Neck no JVD, supple Neck: normal visual inspection, full ROM and no lymphadenopathy Chest Chest: normal inspection of the chest Respiratory : normal respiratory effort and able to speak in complete sentences Cardio Rate: regular rate Rhythm: regular rhythm normal heart sounds S1 and S2 no murmurs, gallops, or rubs GI Inspection: normal to inspection, normal bowel sounds, soft, non tender, non distended, no organomegally Back/Spine/ no CVA tenderness Thoracic/Lumbar Spine: no tenderness or deformities Skin no rashes or lesions Neuro: patient alert and no meningeal signs, Cranial Nerves: CN's II-XI intact bilaterally, Cognition: normal cognition, Speech: speech normal, Gait: normal gait, Depp tendon reflexes normal 2+ Extremities, no edema, full range of motion, normal strength : nomal Narrative The patient who is clearly agitated who was evaluated initially it was deemed that she has a borderline personality for she was found roaming the streets of the city which is dangerous to herself. Patient has poor judgment and on my interview she got agitated and aggressive and states that she did to spoke for with Lester Rivera with had given her car the but she cannot drive it because its in [place]. The patient has ideas of grandiose and delusions and patient continued to be agitated; she has been previously medicated with Haldol with good response . She had to be medicated with Haldol and Ativan for she gpt very agitated. In my opinion patient is at risk to herself, she has been roaming the streets of the [facility] going from ER to with no place to live and in dangerous environment with poor judgment. She will be re-evalautedl by psychiatry for long-term care placement. Initial evaluation by psychiatry to the emergency person listed seconds patient refused to talk to them so clearly she was will not evaluated. Sign Out Sign Out Data: Sign Out Comment: geriatric psych eval; homeless, blind; found wandering in traffic; medically cleared, awaiting [facility] recommendation for placement/respite bed v admission for fdc placement Last updated by Scar Garza MD at 12/25/22 19:21 Sign Out Comment: Homeless and blind. Erratic behavior and wandering in traffic at last discharge attempt. Multiple visits. Pending [facility] human services re- evaluation. No acute events overnight. Last updated by Eulalio Mesa MD at 12/26/22 06:32 Sign Out Comment: signing out to Dr. Bocanegra Last updated by Gurwinder Seals MD at 12/26/22 08:31 Sign Out Comment: Follow-up on second certification. Reassess patient for disposition. Last updated by Mando Bocanegra MD at 12/26/22 15:30 Sign Out Comment: Care transitioned to Dr. Mesa with bed placement pending. Second cert has been completed, patient involuntarily admitted. Last updated by Evelia Jaquez PA at 12/26/22 23:10 Sign Out Comment: No acute events overnight. Patient remains involuntary psychiatric bed search. Signed out to oncoming team pending bed placement. Last updated by Eulalio Mesa MD at 12/27/22 06:23 Discharge Plan Discharge Details Chief Complaint: PsychEval Primary Care Provider: Unknown,Unknown ED Provider: Stanton Jimenez Home Meds and New Rx's Prescriptions: No Action penicillin V potassium 500 mg tablet 500 mg PO QID Qty: 40 0RF diltiazem HCl 360 mg capsule,extended release 24hr 360 mg PO 1XD Patient Comments: take 1 capsule (360MG TOTAL) by mouth once daily metoprolol succinate 25 mg Tablet Extended Release 24 Hr 25 mg PO 2XD Eliquis 2.5 mg Tablet 2.5 mg PO 2XD
--- NOTE | 2022-12-27 08:38 | MHPN_ITS ---
Date of service: 12/26/22 Time of Service: 08:38 Mental Health Emergency Note Release [facility] release signed:: Yes Reason for Visit Kristina is 87 years old and is blind. She is homeless. She is a frequent user of hospital services. It appears she goes from hospital to hospital for housing and food. In the last 2 weeks has the pt presented for ES prior to today?: Yes, presented at ED at another facility Client Information Client is: [employer] Client is an 87 year old, , blind female who is homeless. She has been traveling to ED's all over the state and country for housing needs and food. She is seen tonight in conjunction with her psychiatrist lead second cert. The client refused to engage with the psychiatrist stating the psychiatrist was doing this in a sneaky way and demanding that the only way she would speak to her was if she was in person. She screamed to have the tablet removed form her room. The psychiatrist certified the EE based on delusions. Plan/Disposition Recommended Disposition: Hospitalization facilities contacted. Plan: Client will remain at [facility] pending admission to a psychiatric facility. Person reported agreement to plan: No Reports/communication Outcome discussed with: ED/Personnel
[2022-12-27] MEDS: Penicillin V POTASSIUM 500 MG TAB PO ×2 (09:34→21:30)
[2022-12-27] MEDS: Apixaban 2.5 MG TAB PO ×2 (09:34→21:30)
[2022-12-27] MEDS: Metoprolol CR 25 MG TABCR PO (09:34)
[2022-12-27] MEDS: dilTIAZem CD 180 MG CAPCR 360 MG PO (09:34)
--- NOTE | 2022-12-27 13:09 | NUR.NOTE ---
Addendum entered by Jacquie Keyes 12/27/22 13:21: While the bed linen was being changed the patient stated that she wished that Lester Katiezbigniew would help her. I told her that he probably wouldn't help anyone right now. She stated that he helped her once by buying her a car. She stated she could not drive it any longer. I asked what happened to the car and she stated that her son is now living in the car. Original Note: Nursing Note: Patient spilled ice cream on the sheets and had sticky hands. Gave her paper towels wet and dry to clean herself. Told patient that when she was done we would change her sheets so that they were clean. Patient asking about using a phone to call her niece for her birthday. I asked her the date of her birthday and she said today, the . Patient is stated she wanted to talk to the [place] nurse, Divine Myers. She was told that I need to check with the nurse.
[2022-12-27] MEDS: LORazepam 2 MG/ML VIAL IM (13:50)
[2022-12-27] MEDS: Haloperidol 5 MG/ML VIAL IM (13:50)
--- NOTE | 2022-12-27 13:52 | NUR.NOTE ---
Nursing Note: Pt continues to escalate and yell out. Pt repeatedly walking out of room and making non-logic statements. Pt unsafe. MD at bedside and ordered 5:2 ordered. Medications administered to bilateral thighs. 1:[address]
--- NOTE | 2022-12-27 14:22 | NUR.NOTE ---
Nursing Note:Pt on edi architect and Spo2. HR 66, SpO2 99% RA.
[2022-12-27 14:26] VITALS: BP 105/64; PULSE 66; RESP 18; O2SAT 99
--- NOTE | 2022-12-27 17:19 | W.EDPROG ---
Date of service: 12/27/22 Time of Service: 17:20 Medical Decision Making In my administrative role as ED medical transcription radiology, I engaged with the clinical team and assessed the patient today. The patient has demonstrated grossly impaired judgement, behavior, capacity to recognize reality, and ability to meet the ordinary demands of life. She lacks decisional making capacity. Her ability to exercise self-control, judgement, or discretion in the conduct of her affairs and social relations is so lessened that she poses an imminent danger to herself. Sign Out Sign Out Data: Sign Out Comment: geriatric psych eval; homeless, blind; found wandering in traffic; medically cleared, awaiting [facility] recommendation for placement/respite bed v admission for halfway placement Last updated by Scar Garza MD at 12/25/22 19:21 Sign Out Comment: Homeless and blind. Erratic behavior and wandering in traffic at last discharge attempt. Multiple visits. Pending [facility] human services re-evaluation. No acute events overnight. Last updated by Eulalio Mesa MD at 12/26/22 06:32 Sign Out Comment: signing out to Dr. Bocanegra Last updated by Gurwinder Seals MD at 12/26/22 08:31 Sign Out Comment: Follow-up on second certification. Reassess patient for disposition. Last updated by Mando Bocanegra MD at 12/26/22 15:30 Sign Out Comment: Care transitioned to Dr. Mesa with bed placement pending. Second cert has been completed, patient involuntarily admitted. Last updated by Evelia Jaquez PA at 12/26/22 23:10 Sign Out Comment: No acute events overnight. Patient remains involuntary psychiatric bed search. Signed out to oncoming team pending bed placement. Last updated by Eulalio Mesa MD at 12/27/22 06:23 Discharge Plan Discharge Details Chief Complaint: PsychEval Primary Care Provider: Unknown,Unknown ED Provider: Stanton Jimenez Meds and New Rx's Prescriptions: No Action penicillin V potassium 500 mg tablet 500 mg PO QID Qty: 40 0RF diltiazem HCl 360 mg capsule,extended release 24hr 360 mg PO 1XD Patient Comments: take 1 capsule (360MG TOTAL) by mouth once daily metoprolol succinate 25 mg Tablet Extended Release 24 Hr 25 mg PO 2XD Eliquis 2.5 mg Tablet 2.5 mg PO 2XD
--- NOTE | 2022-12-28 05:25 | W.EDPROG ---
Date of service: 12/28/22 Time of Service: 05:25 Medical Decision Making I, Eulalio Mesa, took signout on this patient. In summary 87-year-old female with remains patient here pending psychiatric care placement as there is significant concerns about her safety. Certainly does not have decision-making capacity. Poor judgment and significant safety concerns remain. No acute events overnight. I, Eulalio Mesa, have signed out care to the oncoming team this morning pending further psychiatric evaluation and bed search. Medical Records Medical records reviewed: Yes I reviewed the patient's medical records. Sign Out Sign Out Data: Sign Out Comment: geriatric psych eval; homeless, blind; found wandering in traffic; medically cleared, awaiting [facility] recommendation for placement/respite bed v admission for detention placement Last updated by Scar Garza MD at 12/25/22 19:21 Sign Out Comment: Homeless and blind. Erratic behavior and wandering in traffic at last discharge attempt. Multiple visits. Pending [facility] human services re-evaluation. No acute events overnight. Last updated by Eulalio Mesa MD at 12/26/22 06:32 Sign Out Comment: signing out to Dr. Bocanegra Last updated by Gurwinder Seals MD at 12/26/22 08:31 Sign Out Comment: Follow-up on second certification. Reassess patient for disposition. Last updated by Mando Bocanegra MD at 12/26/22 15:30 Sign Out Comment: Care transitioned to Dr. Mesa with bed placement pending. Second cert has been completed, patient involuntarily admitted. Last updated by Evelia Jaquez PA at 12/26/22 23:10 Sign Out Comment: No acute events overnight. Patient remains involuntary psychiatric bed search. Signed out to oncoming team pending bed placement. Last updated by Eulalio Mesa MD at 12/27/22 06:23 Discharge Plan Discharge Details Chief Complaint: PsychEval Primary Care Provider: Unknown,Unknown ED Provider: Eulalio Mesa Home Meds and New Rx's Prescriptions: No Action penicillin V potassium 500 mg tablet 500 mg PO QID Qty: 40 0RF diltiazem HCl 360 mg capsule,extended release 24hr 360 mg PO 1XD Patient Comments: take 1 capsule (360MG TOTAL) by mouth once daily metoprolol succinate 25 mg Tablet Extended Release 24 Hr 25 mg PO 2XD Eliquis 2.5 mg Tablet 2.5 mg PO 2XD
[2022-12-28] MEDS: Apixaban 2.5 MG TAB PO ×2 (10:58→20:51)
[2022-12-28] MEDS: Penicillin V POTASSIUM 500 MG TAB PO ×4 (11:01→20:21)
[2022-12-28] MEDS: Metoprolol CR 25 MG TABCR PO (11:01)
[2022-12-28] MEDS: dilTIAZem CD 180 MG CAPCR 360 MG PO (11:01)
--- NOTE | 2022-12-28 14:47 | ED.PROG_ITS ---
Date of service: 12/28/22 Time of Service: 14:48 Medical Decision Making Patient was signed out to me by my colleague pending disposition. Patient is here involuntarily currently. Mental health and case management are working with the [place] [facility] to find a place of habitation for the patient. They are also working on getting a temporary/emergency guardian. Patient remained stable otherwise. No interventions needed are given during the patient's stay during my shift. Sign Out Sign Out Data: Sign Out Comment: geriatric psych eval; homeless, blind; found wandering in traffic; medically cleared, awaiting [facility] recommendation for placement/respite bed v admission for usp placement Last updated by Scar Garza MD at 12/25/22 19:21 Sign Out Comment: Homeless and blind. Erratic behavior and wandering in traffic at last discharge attempt. Multiple visits. Pending [facility] human services re- evaluation. No acute events overnight. Last updated by Eulalio Mesa MD at 12/26/22 06:32 Sign Out Comment: signing out to Dr. Bocanegra Last updated by Gurwinder Seals MD at 12/26/22 08:31 Sign Out Comment: Follow-up on second certification. Reassess patient for disposition. Last updated by Mando Bocanegra MD at 12/26/22 15:30 Sign Out Comment: Care transitioned to Dr. Mesa with bed placement pending. Second cert has been completed, patient involuntarily admitted. Last updated by Evelia Jaquez PA at 12/26/22 23:10 Sign Out Comment: No acute events overnight. Patient remains involuntary psychiatric bed search. Signed out to oncoming team pending bed placement. Last updated by Eulalio Mesa MD at 12/27/22 06:23 Sign Out Comment: pending further psychiatric evaluation/bedsearch. Significant safety concerns. Last updated by Eulalio Mesa MD at 12/28/22 05:30 Discharge Plan Discharge Details Chief Complaint: PsychEval Primary Care Provider: Unknown,Unknown ED Provider: Javier Abrams Home Meds and New Rx's Prescriptions: No Action penicillin V potassium 500 mg tablet 500 mg PO QID Qty: 40 0RF diltiazem HCl 360 mg capsule,extended release 24hr 360 mg PO 1XD Patient Comments: take 1 capsule (360MG TOTAL) by mouth once daily metoprolol succinate 25 mg Tablet Extended Release 24 Hr 25 mg PO 2XD Eliquis 2.5 mg Tablet 2.5 mg PO 2XD
--- NOTE | 2022-12-28 15:20 | CMACTNOTE_ITS ---
Date of service: 12/28/22 Time of Service: 15:20 Care Management Activity Note Activity Note Text Activity Note Text: 12/27/22 CM receives a phone call from [facility] [place] [facility] (tel. # [phone]) re patientTracie Contreras reports patient presented in the emergency room at [facility] on 12/21/22 and again on 12/22/2022. While at [facility], she refused all care including blood work. An Involuntary Emergency Admission (IEA) petition was completed and filed but not upheld. [facility] staff then filed a report with APS and patient was discharged. CHAR speaks with patient's brother, Cornell Hillman, by telephone. He advises Kristina is estranged from her family but states he has had intermittent contact with her over the years. He states to the best of his knowledge Kristina is homeless and lived out of her car in [place] for a period of time. He reports over the past 8 to 10 months, Kristina has been traveling the country and going to numerous hospitals for reasons that are unknown to him. He states this is not normal behavior for her and voices concern that something is wrong with his sister. He is not aware of Kristina ever having mental health issues. CHAR then meets with Dr. Bocanegra, Radha Razo, Divine Myers, and [facility] retail manager to discuss next steps, as [facility] legal refused to file the EE Application with the court, stating patient's behavior is due to the onset of dementia vs. a mental health issue. The decision is made to file guardianship paperwork as patient is found to have a lack of decision-making capacity. 12/28/22 At the direction of Divine Myers, CHAR telephones [place] [employer] to make them aware of patient. A message is left requesting a return phone call. CHAR also completes emergency guardianship paperwork and contacts the Office of Public Guardian to obtain their approval for the request of a public guardian. A message is left for Radha Gaston. 12/29/22 CHAR outreaches to Radha Marilin and discusses Kristina's situation. Radha advises if they were to become her guardian, they would only be able to complete a Choices for Care application on her behalf and consent to a usp placement and/or community services. Radha wishes to speak with Kristina's brother and with Jacob Patiño of [facility] before giving CHAR the go ahead to file the guardianship paperwork. 12/30/22 Sarah Lin and Rox of the [facility] meet with Kristina. She declines to sign releases and refuses services. CHAR also receives a call from Jacob Patiño, field sales trainer of the [employer]. Jacob suggests we assist Kristina to complete a [facility] Medicaid application and help her find a usp placement, if she is agreeable. CHAR also speaks with Radha Marilin of the Office of Public Guardian who advises they will not consent to be Kristina's guardian at this time. Guardianship paperwork is therefore not filed with the courts.
--- NOTE | 2022-12-28 18:13 | W.MEDCONSULT ---
Date of service: 12/28/22 Time of Service: 18:13 Assessment and Plan Assessment and plan (1) Chronic dental infection: Status: Acute Assessment and plan: Patient complains of embedded infection in her left cheek. There is no significant abnormality but she does have aged and eroded teeth. She is empirically placed on penicillin 500 mg 4 times daily x10 days. I cannot disagree with placing her on antibiotics for her dental issues. (2) Homelessness: Status: Acute Assessment and plan: Patient is blind and quite aged and appears to be dependent for ADLs. She has ended up in the [facility] by her own wishes to since the presence of her now brother. She has no plans for housing or how to take care of herself. She has been helped with housing in a hotel room with significant added aid from a local advocacy agency. This is not a sustainable plan. Given her behaviors and lack of a sensible solution she is determined to lack capacity by the opinion of 2 physicians and is awaiting guardianship and further disposition. She will likely need placement in a shelter facility which may only happen through a court order given her resistance to any form of institutional help. (3) Atrial fibrillation: Assessment and plan: She has a history of atrial fibrillation and is indeed in atrial flutter by EKG. She is on Eliquis and diltiazem. Rate is well controlled. She is asymptomatic from this and maintaining normal vital signs. (4) Breast lump: Assessment and plan: She has a lump in the left breast region. She states this was worked up at [facility] and not found to be malignant. She does not note that its been growing or causing her any symptoms. She has never had a mammogram. Under ideal circumstances she would agree to have this worked up through a primary care provider in the community. She is not agreeing to this at this time. (5) Mental health disorder: Status: Acute Assessment and plan: She has an otherwise undiagnosed mental health disorder. She has delusions with grandiosity. She does not appear to be hallucinating. She does not appear to be in touch with reality and that some of her plans or lack thereof are putting her health and welfare in great jeopardy. For instance she eloped from the ED with plans to walk to a pharmacy but she is blind and ended up screaming and yelling for help. This is a very difficult social/behavioral problem and we are seeking institutional help through guardianship and possible court order to get her the help that she needs. There does not appear to be any chronic medication that would help her at this point. She is receiving as needed Haldol and lorazepam to help with her agitation and keep her safe. History of Present Illness History of Present Illness Chief Complaint: Mental health hold Narrative: This is an 87-year-old woman with chronic mental health issues who has migrated throughout the [place] area most recently from [facility] to [place], [place]. She presented on 12/23/2022 because of dental issues. No physical signs were found and she was discharged. She represented on 12/24/2022 and was found to be in need of a mental health consult. Since arriving at the hospital she has had multiple stories and delusions, some quite grandiose. On 12/25/2022 she eloped from the emergency room and was on hospital drive screaming and grabbing at people purportedly in an attempt to go to the pharmacy to fill a prescription for penicillin. She states she wants to leave but she has nowhere to go as she is homeless. 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 She is completely dependent for her activities of daily living. She states she has a son in the [facility] who is disabled by ankylosing spondylitis. Her wishes are to return to help him. She is boarding in the emergency department. A medical consult was requested. Consults Consult date: 12/28/22 Requesting physician: Javier Abrams Review of Systems Narrative: She offers no significant complaints. She says she has a sore spot in her left inner cheek that is the source of her chronic dental infection. She is blind from glaucoma and secondary to corrective eye surgery about 5 and half years ago. She has a good appetite. She offers no other pain symptoms. When asked about any unusual lumps or bumps she points to a lump in her left breast that she says was worked up at [facility]. She also says she has not spot on her left lung. She says she has atrial fibrillation but it is not symptomatic. She is not having any chest pain. She has no shortness of breath. She has no abdominal discomfort. She is not having any urinary dysfunction. She offers no complaints of bowel dysfunction. She has some bruising on her lower legs which she says is from the way people have been handling her. PFSH All Active Problems Mental health disorder (Acute) Chronic dental infection (Acute) Homelessness (Acute) Medical History (Updated 12/28/22 @ 18:39 by Kyle Anthony MD) Atrial fibrillation Breast lump Glaucoma blindness x 5 1/2 years Lung mass Social History Smoking/Tobacco Use Status: Never Smoking risk assessment performed?: Yes Drug use: Never Substance use type: does not use Housing: other Details: currently living in hotel Additional Social history: patient homeless Exam Narrative Exam Narrative: Patient is sitting up on the gurney in no apparent distress. She appears to be completely blind and admits to seeing no shadows or any figures when challenged. Her hearing appears to be intact. There is no nasal abnormality her oropharynx appears to be moist and pink. She does have some evidence of aged dentistry including old fillings in her upper teeth. The lower teeth appear to be worn and have some blackened areas but are intact. There is no swelling along the mandible. I did not see any ulceration or abnormality. She describes a region in her left cheek that is embedded. There is no palpable abnormality in that region. Her neck is supple and there is no significant adenopathy. She is quite thin and has a very pronounced clavicle bilaterally. Her chest is extremely thin with visible rib lines. She points to a lump in the left breast region. There is indeed a soft 2 to 2-1/2 cm ovoid mass in the region of the left breast without any detectable surrounding breast tissue. The overlying skin appears to be fully intact. The right side did not appear to have any obvious masses. Her abdominal exam shows slight protrusion of the abdomen it is firm but otherwise not tender to palpate. No masses are palpable the lower extremities show superficial bruising and ecchymoses. There is also increased pigmentation along both lower extremities related to hemosiderin deposits. There does not appear to be significant swelling. Both lower extremities appear to be well perfused. Neurologically she moves upper and lower extremities with good purposeful movements without significant tremor or alteration in movements. Her speech is relatively clear and she gives a somewhat confabulatory history but it may contain factual information. She says she is a [place] and grew up in the [facility] and had 4 brothers. Results Last Vital Signs Pulse 66 12/27/22 14:26 Resp 18 12/27/22 14:26 BP 105/64 12/27/22 14:26 Pulse Ox 99 12/27/22 14:26 Labs 12/25/22 14:26 12/25/22 14:26 Imaging Chest x-ray: report reviewed (No abnormality) EKG: report reviewed (Atrial flutter at a rate of 112. ST depression diffusely.) Additional studies: Head CT showed no abnormality
--- NOTE | 2022-12-28 22:14 | ED.PROG_ITS ---
Date of service: 12/28/22 Time of Service: 15:00 Medical Decision Making Medical Records Medical records narrative: Patient who was seen by me yesterday and has been here for the last 3 days for wondering homeless in the streets is a 71 here she has been delusional although every time she is medicated with Haldol improves. She was evaluated by the hospitalist and accepted to be admitted to the hospital but she is still here in the emergency department pending admission. Exam Narrative Exam Narrative: Unchanged from previous exams Sign Out Sign Out Data: Sign Out Comment: geriatric psych eval; homeless, blind; found wandering in traffic; medically cleared, awaiting [facility] recommendation for placement/respite bed v admission for extermination supervisor placement Last updated by Scar Garza MD at 12/25/22 19:21 Sign Out Comment: Homeless and blind. Erratic behavior and wandering in traffic at last discharge attempt. Multiple visits. Pending [facility] human services re- evaluation. No acute events overnight. Last updated by Eulalio Mesa MD at 12/26/22 06:32 Sign Out Comment: signing out to Dr. Bocanegra Last updated by Gurwinder Seals MD at 12/26/22 08:31 Sign Out Comment: Follow-up on second certification. Reassess patient for disposition. Last updated by Mando Bocanegra MD at 12/26/22 15:30 Sign Out Comment: Care transitioned to Dr. Mesa with bed placement pending. Second cert has been completed, patient involuntarily admitted. Last updated by Evelia Jaquez PA at 12/26/22 23:10 Sign Out Comment: No acute events overnight. Patient remains involuntary psychiatric bed search. Signed out to oncoming team pending bed placement. Last updated by Eulalio Mesa MD at 12/27/22 06:23 Sign Out Comment: pending further psychiatric evaluation/bedsearch. Significant safety concerns. Last updated by Eulalio Mesa MD at 12/28/22 05:30 Sign Out Comment: Please refer to note. Patient states stable throughout the day. As an update administration has requested formal medical consult for stab ility as the patient will be here for quite some time. Last updated by Javier Abrams DO at 12/28/22 15:25 Sign Out Comment: Patient will be transitioned to the next provider. Patient with borderline personality delusional with some dementia who due to be placed in a [facility] and in the meantime will be admitted to the hospital for further observation. She is still boarding here in the emergency department until there is a bed available. She was evaluated by the hospitalist today Last updated by Stanton Jimenez MD at 12/28/22 22:18 Discharge Plan Discharge Details Chief Complaint: PsychEval Primary Care Provider: Unknown,Unknown ED Provider: Stanton Jimenez Home Meds and New Rx's Prescriptions: No Action penicillin V potassium 500 mg tablet 500 mg PO QID Qty: 40 0RF diltiazem HCl 360 mg capsule,extended release 24hr 360 mg PO 1XD Patient Comments: take 1 capsule (360MG TOTAL) by mouth once daily metoprolol succinate 25 mg Tablet Extended Release 24 Hr 25 mg PO 2XD Eliquis 2.5 mg Tablet 2.5 mg PO 2XD
--- NOTE | 2022-12-28 22:44 | NUR.NOTE ---
Nursing Note: @ 2200 assumed care of pt.
--- NOTE | 2022-12-28 22:59 | W.EDPROG ---
Date of service: 12/28/22 Time of Service: 22:59 Medical Decision Making I received signout on this 87-year-old female with history of homelessness and mental health disorder. She has been accepted to the medical service and is pending a bed upstairs. We will update documentation as clinically warranted and signed patient out to the oncoming daytime provider. 8 AM No active behavioral issues last shift. I signed patient out to Dr. Mendoza Sign Out Sign Out Data: Sign Out Comment: geriatric psych eval; homeless, blind; found wandering in traffic; medically cleared, awaiting [facility] recommendation for placement/respite bed v admission for terminal block assembler placement Last updated by Scar Garza MD at 12/25/22 19:21 Sign Out Comment: Homeless and blind. Erratic behavior and wandering in traffic at last discharge attempt. Multiple visits. Pending [facility] human services re-evaluation. No acute events overnight. Last updated by Eulalio Mesa MD at 12/26/22 06:32 Sign Out Comment: signing out to Dr. Bocanegra Last updated by Gurwinder Seals MD at 12/26/22 08:31 Sign Out Comment: Follow-up on second certification. Reassess patient for disposition. Last updated by Mando Bocanegra MD at 12/26/22 15:30 Sign Out Comment: Care transitioned to Dr. Mesa with bed placement pending. Second cert has been completed, patient involuntarily admitted. Last updated by Evelia Jaquez PA at 12/26/22 23:10 Sign Out Comment: No acute events overnight. Patient remains involuntary psychiatric bed search. Signed out to oncoming team pending bed placement. Last updated by Eulalio Mesa MD at 12/27/22 06:23 Sign Out Comment: pending further psychiatric evaluation/bedsearch. Significant safety concerns. Last updated by Eulalio Mesa MD at 12/28/22 05:30 Sign Out Comment: Please refer to note. Patient states stable throughout the day. As an update administration has requested formal medical consult for stability as the patient will be here for quite some time. Last updated by Javier Abrams DO at 12/28/22 15:25 Sign Out Comment: Patient will be transitioned to the next provider. Patient with borderline personality delusional with some dementia who due to be placed in a [facility] and in the meantime will be admitted to the hospital for further observation. She is still boarding here in the emergency department until there is a bed available. She was evaluated by the hospitalist today Last updated by Stanton Jimenez MD at 12/28/22 22:18 Discharge Plan Discharge Details Chief Complaint: PsychEval Primary Care Provider: Unknown,Unknown ED Provider: Alexis Knox [place] Meds and New Rx's Prescriptions: No Action penicillin V potassium 500 mg tablet 500 mg PO QID Qty: 40 0RF diltiazem HCl 360 mg capsule,extended release 24hr 360 mg PO 1XD Patient Comments: take 1 capsule (360MG TOTAL) by mouth once daily metoprolol succinate 25 mg Tablet Extended Release 24 Hr 25 mg PO 2XD Eliquis 2.5 mg Tablet 2.5 mg PO 2XD
[2022-12-29] MEDS: dilTIAZem CD 180 MG CAPCR 360 MG PO (08:46)
[2022-12-29] MEDS: Metoprolol CR 25 MG TABCR PO (08:46)
[2022-12-29] MEDS: Apixaban 2.5 MG TAB PO ×2 (08:46→20:33)
[2022-12-29] MEDS: Penicillin V POTASSIUM 500 MG TAB PO ×4 (08:47→20:32)
--- NOTE | 2022-12-29 13:06 | HPE_ITS ---
Date of service: 12/29/22 Time of Service: 13:06 Assessment and Plan Assessment and plan (1) Chronic dental infection: Status: Acute Assessment and plan: empirically placed on penicillin 500 mg 4 times daily x10 days. (2) Homelessness: Status: Acute Assessment and plan: Given her behaviors and lack of a sensible solution she is determined to lack capacity by the opinion of 2 physicians and is awaiting guardianship and further disposition. It was anticipated that she will likely need placement in assisted living vs residential care, which she is not currently agreeable to. case manage ment will continue to help assist with placement. (3) Atrial fibrillation: Assessment and plan: history of atrial fibrillation and is in atrial flutter by EKG. She is on Eliquis and diltiazem. Rate is well controlled. (4) Breast lump: Assessment and plan: She has a lump in the left breast region. She states this was worked up at [facility] and not found to be malignant. She does not note that its been growing or causing her any symptoms. She has never had a mammogram. Under ideal circumstances she would agree to have this worked up through a primary care provider in the community. She is not agreeing to this at this time. (5) Mental health disorder: Status: Acute Assessment and plan: She likely has an undiagnosed mental health disorder. She has delusions with grandiosity. She does not appear to be hallucinating. There is concern that she is putting her health and welfare in great jeopardy. For instance she eloped from the ED with plans to walk to a pharmacy but she is blind and ended up screaming and yelling for help. she has been evaluated at many facilities and has no-trespass orders at several places I am told ([facility] being one, she is hoping to return to [place] where her son resides) it has also been said that her son is ill and does not want to assist with his mothers care, she also reportedly has 2 nieces in [place] who also do not want to assist with situation. Due to this is a very difficult social/behavioral problem the organization is seeking institutional help through guardianship and possible court order to get her the help that she needs. There does not appear to be any chronic medication that would help her at this point, there is no access to psychiatric care inpatient. She was receiving as needed Haldol and lorazepam in the emergency departement to help with her agitation and keep her safe. I discussed possibly trialling seroquel with her, which she adamantly declines. I will place prn oral ativan order should she request to help with any symptoms of agitation or anxiety she may experience. Plan is that she will remain here until safe discharge plan and while guardianship paperwork being processed. discussed with DR Sharma History of Present Illness History of Present Illness Chief Complaint: delusion Narrative: This is a 87-year-old female patient who is homeless recently came to this area from [facility], legally blind, history of chronic atrial fibrillation on Metroprolol diltiazem and apixaban presented to the emergency department for complaints originally of dental infection. She was found to be paranoid and having delusions. She was medically cleared and then evaluated by mental health and was cleared for discharge as well but found to not have capacity so to providers deemed her to lack capacity and working with case management they are seeking guardianship. Unfortunately she is not willing to go voluntarily for inpatient psychiatric evaluation so is being held here until safe discharge planning can be obtained. Hospitalist services was contacted and she is being admitted to the medical surgical unit. In the emergency department she has required IM Haldol to help with severe agitation at times. This has been effective. Review of Systems All systems reviewed & are unremarkable except as noted in HPI and below Constitutional Constitutional: Reports system reviewed and no additional complaints, except as documented PFSH All Active Problems Mental health disorder (Acute) Chronic dental infection (Acute) Homelessness (Acute) Medical History (Updated 12/28/22 @ 18:39 by Kyle Anthony MD) Atrial fibrillation Breast lump Glaucoma blindness x 5 1/2 years Lung mass Social History Smoking/Tobacco Use Status: Never Smoking risk assessment performed?: Yes Drug use: Never Substance use type: does not use Housing: other Details: currently living in hotel Additional Social history: patient homeless Meds Allergies and Home Medications Home Medications Medication Instructions Recorded Confirmed Type apixaban 2.5 mg tablet (Eliquis) 2.5 mg PO 2XD 11/15/22 12/25/22 History diltiazem HCl 360 mg 360 mg PO 1XD 11/15/22 12/25/22 History capsule,extended release 24 hr metoprolol succinate 25 mg 25 mg PO 2XD 11/15/22 12/25/22 History tablet,extended release 24 hr penicillin V potassium 500 mg 500 mg PO QID #40 tabs 12/23/22 12/25/22 Rx tablet Exam Const General: no acute distress, disheveled and frail appearing Orientation: alert, awake and oriented x3 HENMT Head: atraumatic Mouth: moist mucous membranes Teeth and gingiva: poor dentition Eyes Conjunctivae: normal conjunctivae Sclera: normal sclerae Neck Neck: supple Resp Auscultation: clear to auscultation bilaterally Cardio Rate: regular rate Rhythm: regular rhythm Skin General skin exam: no rashes or lesions noted Neuro General: patient alert, patient awake, patient oriented x3 and tone normal Cognition: normal cognition Extrem General: no edema Psych Appearance: disheveled Mental Status: mental status grossly normal Speech and Movement: agitated Mood: angry Affect: irritable affect Attitude: cooperative Thought Process: perseverating and tangential Insight: limited Judgment: poor Results Labs 12/25/22 14:26 12/25/22 14:26 Last Vital Signs Pulse 66 12/27/22 14:26 Resp 18 12/27/22 14:26 BP 105/64 12/27/22 14:26 Pulse Ox 99 12/27/22 14:26 Time Spent Time spent with Patient: 40-54 minutes Time was spent: preparing to see the patient(eg.review tests), obtaining and/or reviewing separately otained hiistory, referring, communicating with other health rn homecare and counseling the patient
[2022-12-30] MEDS: Metoprolol CR 25 MG TABCR PO (08:45)
[2022-12-30] MEDS: Penicillin V POTASSIUM 500 MG TAB PO ×4 (08:45→20:44)
[2022-12-30] MEDS: Apixaban 2.5 MG TAB PO ×2 (08:45→20:44)
[2022-12-30] MEDS: dilTIAZem CD 180 MG CAPCR 360 MG PO (08:45)
[2022-12-30 08:48] VITALS: BP 122/76; PULSE 133; RESP 20; TEMP 36.2; O2SAT 99
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
[2022-12-31] MEDS: Penicillin V POTASSIUM 500 MG TAB PO ×4 (08:08→20:27)
[2022-12-31] MEDS: Metoprolol CR 25 MG TABCR PO (08:08)
[2022-12-31] MEDS: dilTIAZem CD 180 MG CAPCR 360 MG PO (08:08)
[2022-12-31] MEDS: Apixaban 2.5 MG TAB PO ×2 (08:08→20:27)
--- NOTE | 2022-12-31 23:09 | NUR.NOTE ---
2302 Transfer note Pt moved to room 230. she is resting bed. requesting more room light. i explained to the patient that we currently have all the lights on in the room that we have. She seems not pleased by that response i kindly reminded the patient that i will be back to check on her again soon. Nursing Note:
--- NOTE | 2023-01-01 04:57 | NUR.NOTE ---
pt calls me to the room at this time, to explain to me that she just woke up. concerned about the estate of her late . as there is alot of money at stake. she expresses concern that since she is blind she has not been able to sort out the affairs. I told the patient that the best people to discuss the situation further would be case management. and participating in the matter would be entirely outside of my scope of practice. she continues to spend about 20 minutes explaining the situation. i asked the patient what immediate personal needs she may need. she denies any at this time. I now take the time to go help other patients. Nursing Note:
[2023-01-01 07:36] VITALS: BP 134/78; PULSE 95; RESP 18; TEMP 36.8; O2SAT 99
[2023-01-01] MEDS: dilTIAZem CD 180 MG CAPCR 360 MG PO (07:37)
[2023-01-01] MEDS: Penicillin V POTASSIUM 500 MG TAB PO ×4 (07:37→19:34)
[2023-01-01] MEDS: Metoprolol CR 25 MG TABCR PO (07:37)
[2023-01-01] MEDS: Apixaban 2.5 MG TAB PO ×2 (07:37→19:34)
--- NOTE | 2023-01-01 12:28 | NUR.NOTE ---
At approximately 10:00, this RN was assisting on the MS floor, answering call bells. Patient rang out and asked me to dial her niece so she could wish her happy birthday. There were multiple lights ringing. I explained to her I would be back. She replied, You are a hateful creature. I returned approximately 20 minutes later, and she was sleeping. As 11:45, this RN was setting up the patient's lunch tray. She was pleasant and cooperative until I went to leave, at which point she yelled, I hope you get abandoned when you are 87 years old! I asked her if there was anything else she required, and she yelled at me to leave her room, which I did.
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
[2023-01-01] MEDS: LORazepam 1 MG TAB PO (19:34)
[2023-01-02] MEDS: Penicillin V POTASSIUM 500 MG TAB PO ×4 (08:30→21:56)
[2023-01-02] MEDS: Apixaban 2.5 MG TAB PO ×2 (08:30→21:55)
[2023-01-02] MEDS: Metoprolol CR 25 MG TABCR PO (08:30)
[2023-01-02] MEDS: dilTIAZem CD 180 MG CAPCR 360 MG PO (08:30)
--- NOTE | 2023-01-02 08:31 | NUR.NOTE ---
Pt asked for asst to bathroom. Guided pt to bathroom, ambulated with steady gait. Pt requesting asst in tasks which she should be able to complete independently--attempted to asst pt to complete tasks independently. She states this nurse is hateful and will not help her. Requests this nurse to leave room.
[2023-01-02 08:58] VITALS: BP 139/71; PULSE 102; RESP 16; TEMP 36.6; O2SAT 96
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
--- NOTE | 2023-01-02 21:52 | PDOC.CMPRO ---
Date of service: 01/02/23 Time of Service: 21:52 Care Management Progress Note Progress Note Text Progress Note Text: S/O:Kristina remains at [facility] in SB-2 status. She was admitted because she is legally blind and homeless and no safe discharge plan that she would agree to could be formulated. She appears to have some mental health disorders as well but efforts to have her admitted involuntarily were unsuccessful. She has been intermittently agitated, loud, yelling, and verbally abusive to staff. Today she has been calmer and asked for assistance with making travel arrangements to go to [place]. She stated that she has a debit card and can afford the plane ticket but needs transportation to the airport. Apparently, despite her disabilities, she has made several cross-country trips in the past couple of years and knows that because she has a visual impairment, she will receive assistance from airport and transportation staff. Efforts are underway to assist Kristina with her travel plans. She anticipates leaving early . A: Kristina is an 87 year old woman admitted to [facility] P: Kristina's discharge plan is unclear. She indicated today that she would like help getting to an airport so that she can travel to [place] to see her son. Efforts are being made to assist with this process.
--- NOTE | 2023-01-02 22:03 | CM.SWINGPC ---
Date of service: 12/30/22 Time of Service: 16:00 Swingbed Plan of Care Activites/Discharge Plan of care: SWING BED PROGRAM ACTIVITIES/DISCHARGE PLAN OF CARE ACTIVITIES PLAN Date:12/30/22 Identified Need:individual activity plan Intervention/Plan:Kristina enjoys listening to the television and visiting with staff. She also enjoys talking on the phone. Because she is legally blind she is unable to do word searches or puzzles or read. Initials [facility] DISCHARGE PLAN Date:12/30/22 Identified Need:safe discharge plan Intervention/Plan:Kristina will be discharged back to the community when medically cleared. Initials
--- NOTE | 2023-01-02 22:07 | CMSA_ITS ---
Date of service: 12/30/22 Time of Service: 13:00 SB Psychosocial/Act. Ass[facility] Hospital Admission Admission Date: 12/29/22 Admission From:: ED Diagnosis:: homelessness Swing Bed Admission Swing Bed Admit Date:: 12/30/22 Swing Bed Level of Care: Level 2/ICF Social Supports PREVIOUS FUNCTIONAL STATUS/SOCIAL/FAMILY SUPPORTS:: Kristina 's primary state of residence is [place]. She is homeless and for the past year or so, she has been traveling the country and presenting at various emergency rooms. She has one son, who resides in [place], and an older brother in [place], [place]. Kristina reports her son has and is disabled. Kristina is retired but reports formerly working various jobs, e.g. 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 She is visually impaired and is independent with her ADLs. Prior to Admission Living Arrangements/Environment Prior to Admission:: Unclear, but appears to have been in hospitals all over the country for the past 3 years or so. Work History Employment Status:: retired Benefits Financial: Social Security Present Functional Status Sensory Systems: legally blind Behavior:: erratic, agitated, delusional
[2023-01-03] MEDS: dilTIAZem CD 180 MG CAPCR 360 MG PO (08:06)
[2023-01-03] MEDS: Apixaban 2.5 MG TAB PO ×2 (08:06→21:08)
[2023-01-03] MEDS: Metoprolol CR 25 MG TABCR PO (08:06)
[2023-01-03] MEDS: Penicillin V POTASSIUM 500 MG TAB PO ×4 (08:06→21:08)
[2023-01-03 11:14] VITALS: BP 121/70; PULSE 91; RESP 16; O2SAT 100
[2023-01-04] MEDS: Penicillin V POTASSIUM 500 MG TAB PO ×4 (08:20→20:54)
[2023-01-04] MEDS: dilTIAZem CD 180 MG CAPCR 360 MG PO (08:20)
[2023-01-04] MEDS: Metoprolol CR 25 MG TABCR PO (08:20)
[2023-01-04] MEDS: Apixaban 2.5 MG TAB PO ×2 (08:21→20:54)
[2023-01-04 08:25] VITALS: BP 131/86; PULSE 87; RESP 18; O2SAT 99
--- NOTE | 2023-01-04 09:10 | OT.INIE ---
Occupational Therapy Notes Inpatient Occupational Therapy Evaluation Date: 01/04/23 Referring Doctor:Cici Shukla NP OT Orders: Non Urgent- Limited ability Precautions: Fall, standard, full PATIENT PROFILE/ADMITTING DIAGNOSIS: Pt is an 87 year old female who was admitted to [facility] through the ED as a palliative care pt for the following dx of hypomania, mental health disorder, chronic dental infection, homelessness. With barriers including assessment of barriers to meet care plan, family estrangement, legal blindness, Bipolar 1 disorder with moderate farzaneh. Past Medical History: All Active Problems Mental health disorder (Acute) Chronic dental infection (Acute) Homelessness (Acute) Medical History?(Updated 12/28/22 @ 18:39 by Kyle Anthony MD) Atrial fibrillation Breast lump Glaucoma blindness x 5 1/2 yearsLung mass Social History/Home Situation: Pt is a poor historian, she is not able to provide a clear baseline of her home situation. She states to OT that she, obviously doesn't live alone because shes blind. Equipment owned/DME: unable to assess SUBJECTIVE: Pt is sitting on her bed and states that she is angry right now and is talking about how the world is in bad shape and that she knows Dat Blunt will be our next president. OBJECTIVE: General Observation: Confused, legally blind Mental Status: Alert to name and thinks she lives in the hospital Pain: no c/o pain ROM: RUE AROM WFL L UE AROM WFL STRENGTH: RUE 5/5 throughout LUE 5/5 throughout FUNCTIONAL MOBILITY/ADLS: EATING Pt was sitting in bed she required max (A) set up but is (I) with hand to mouth without (A) needed. BALANCE: Static sitting Normal Dynamic Sitting Normal SPECIAL TESTS: Daily Activity Limitations Standardized Measure [facility] AM -PAC ?6 clicks? Daily Activity Inpatient Short Form: Raw score: 14 Standardized score: 33.39 CMS score: 59.67% INFORMED CONSENT/EDUCATION: Pt instructed in purpose of OT Consult and plan of care. ASSESSMENT: Patient is a 87-year-old female referred to occupational therapy services with diagnosis of hypomania, mental health disorder, chronic dental infection, homelessness. With barriers including assessment of barriers to meet care plan, family estrangement, legal blindness, Bipolar 1 disorder with moderate farzaneh. Patient presents with clinical signs and symptoms consistent with dx, as demonstrated by the following impairment level findings/functional limitations: Impairments in ADL/IADL and leisure activities, decreased functional activity tolerance, decreased cognitive awareness, high risk for readmission, decreased social supports, mental health disorder limiting pts functional safety and task management. AMPAC score 14 Patient is assessed as a Moderate 56444 complexity based on the following: History: see above Examination: see functional limitations as noted above Presentation: evolving Decision Making: AMPAC score 14 GOALS Goals x1 week 1. Grooming- (I) 2. Dressing seated with max (A) set up (I) 3. Bathing seated (I) 4. Toileting on commode (I) PLAN OF CARE/TREATMENT PLAN: 1x/day, 5 days/ week x 1week Initiate Occupational Therapy Services for bathing, dressing, grooming, toileting, eating, transfer training. DISCHARGE RECOMMENDATIONS Pt is very confused and congitively challenged. OT is unable to assess to know if this is patient's baseline. OT recommends that she will need 24 hour supervision vs. SNF to (A) with ADLs/IADLs. Her vision is a limiting factor and she is not able to provide transportation for herself. Functionally she can perform tasks but requires max (A) Set up/clean up. TREATMENT TIME/MINUTES/CODES 26197, [id number], 20 minutes Jessie Ivan OTR/[facility] [place], [place]
[2023-01-04] MEDS: guaiFENesin 600 MG TABCR PO ×2 (12:59→20:54)
--- NOTE | 2023-01-04 15:30 | PGE_ITS ---
Date of Service Date of service: 01/04/23 Time of Service: 13:00 Assessment and Plan Assessment and plan (1) Chronic dental infection: Status: Inactive Assessment and plan: Continue penicillin 500 mg 4 times daily x10 days. (2) Homelessness: Status: Inactive Assessment and plan: Continues to decline SNF. She will need assisted living vs [facility] care, which she is not currently agreeable to. Case management will continue to help assist with placement. See their notes. (3) Atrial fibrillation: Assessment and plan: History of atrial fibrillation and is in atrial flutter by EKG. She is on Eliquis and diltiazem. Rate is well controlled. She has been refusing medications. Continue to encourage she take her usually scheduled meds. (4) Breast lump: Assessment and plan: She has a lump in the left breast region. She states this was worked up at [facility] and not found to be malignant. She states it has not been growing or causing her any symptoms, and then stated she has never had a mammogram. Under ideal circumstances she would agree to have this worked up through a primary care provider in the community. She is not agreeing to this at this time. (5) Mental health disorder: Status: Chronic Assessment and plan: She continues to have delusions of grandeur. She has pressured speech and becomes defensive and angry when asked questions such as where can we get past medical records, etc. discussed with Dr Anthony Subjective Subjective Patient reports: no new complaints, tolerating a regular diet, voiding w/o difficulty, bowel movement and afebrile; denies diarrhea, nausea, vomiting or shortness of breath Interval history since last seen: Kristina has been speaking with care managers and administration about a safe discharge plan. She is verbalizing she would like to go to [facility] via plane. She would like to get home prior to the weekend to see her son, she states he is very ill and she should get home to him. She would like to go before the weekend because she states in her past experience hotels cost more than $300/day on the weekend and she would like to stay in a hotel. Exam Narrative Exam Narrative: Kristina is sitting at 45 degree on the hospital bed, awake and alert. She is conversant. She is focused on getting to [facility] the [facility] specifically. She states her son is located in [facility] and he is living in [facility] and is terminally ill and she has to get to him to help him. Care managers have been discussing with her options for her to be discharged safely. This is ongoing and tangential. Const General: no acute distress and frail appearing Orientation: alert, awake and oriented x3 HENMT Head: atraumatic Mouth: moist mucous membranes Teeth and gingiva: poor dentition Eyes Conjunctivae: normal conjunctivae Sclera: normal sclerae Neck Neck: supple Resp Auscultation: clear to auscultation bilaterally Cardio Rate: regular rate Rhythm: regular rhythm Skin General skin exam: no rashes or lesions noted Neuro General: patient alert, patient awake and patient oriented x3 Cognition: normal cognition Extrem General: no edema Psych Appearance: disheveled Mental Status: mental status grossly normal Speech and Movement: agitated Affect: irritable affect Thought Process: perseverating and tangential Insight: limited Judgment: poor Objective Last Vital Signs Temp 36.6 C 01/02/23 08:58 Pulse 87 01/04/23 08:25 Resp 18 01/04/23 08:25 BP 131/86 01/04/23 08:25 Pulse Ox 99 01/04/23 08:25 Time Spent with Patient Time Spent with Patient: 25-34 minutes Time was spent: preparing to see the patient(eg.review tests), obtaining and/or reviewing separately otained hiistory, ordering medications,tests, procedures, referring, communicating with other health personal carer and indepentently interpreting results
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
--- NOTE | 2023-01-05 08:46 | OT.INNT ---
Occupational Therapy Notes 01/05/23 OT went to see pt this morning who was sleeping. She has been slightly agitated this morning and OT is going to let her sleep at this time. OT will resume services tomorrow morning. Jessie Ivan, OTR/L
[2023-01-05] MEDS: dilTIAZem CD 180 MG CAPCR 360 MG PO (09:20)
[2023-01-05] MEDS: Metoprolol CR 25 MG TABCR PO (09:23)
[2023-01-05] MEDS: guaiFENesin 600 MG TABCR PO ×2 (09:23→19:33)
[2023-01-05] MEDS: Penicillin V POTASSIUM 500 MG TAB PO ×2 (09:23→12:23)
[2023-01-05] MEDS: Apixaban 2.5 MG TAB PO ×2 (09:23→19:33)
[2023-01-05] MEDS: Potassium Chloride 20 MEQ TABCR 40 MEQ PO (12:29)
--- NOTE | 2023-01-05 17:10 | CMPROGNOTE_ITS ---
Date of service: 01/05/23 Time of Service: 17:10 Care Management Progress Note Progress Note Text Progress Note Text: S/O: Kristina requests to fly back to [place] on Monday. She states it has to be Monday because weekday motel rates are cheaper than on the weekend. After dicussion with [facility] administration, they have agreed to purchase her plane ticket. Transportation to the airport is also in the process of being arranged by care management. When CHAR met with Kristina today, she requested that CM contact [facility] to arrange for someone to pick her up at the airport on Monday. CHAR then calls [facility] in [facility] and is advised they do not provide or arrange for transportation services. This is relayed to Kristina who becomes angry and states CM did not speak to the appropriate person at [facility]. CM provides her with contact information for [place], [place], and with the assistance of nursing staff, Kristina contacts [facility] directly. A: Kristina remains at [facility] in SB-2 status. P: Kristina will be returning to [place] on Monday. She will be flying out of [facility] in [place], [place]. CM will continue to follow.
--- NOTE | 2023-01-05 17:10 | PDOC.CMPRO ---
Date of service: 01/05/23 Time of Service: 17:10 Care Management Progress Note Progress Note Text Progress Note Text: S/O: Kristina requests to fly back to [place] on Monday. She states it has to be Monday because weekday motel rates are cheaper than on the weekend. After dicussion with [facility] administration, they have agreed to purchase her plane ticket. Transportation to the airport is also in the process of being arranged by care management. When CHAR met with Kristina today, she requested that CM contact [facility] to arrange for someone to pick her up at the airport on Monday. CHAR then calls [facility] in [facility] and is advised they do not provide or arrange for transportation services. This is relayed to Kristina who becomes angry and states CM did not speak to the appropriate person at [facility]. CM provides her with contact information for [place], [place], and with the assistance of nursing staff, Kristina contacts [facility] directly. A: Kristina remains at [facility] in SB-2 status. P: Kristina will be returning to [place] on Monday. She will be flying out of [facility] in [place], [place]. CM will continue to follow.
[2023-01-05] MEDS: Acetaminophen 325 MG TAB 650 MG PO (21:26)
[2023-01-06] MEDS: Acetaminophen 325 MG TAB 650 MG PO ×2 (05:14→19:14)
[2023-01-06] MEDS: guaiFENesin 600 MG TABCR PO ×2 (07:07→19:14)
[2023-01-06] MEDS: dilTIAZem CD 180 MG CAPCR 360 MG PO (08:38)
[2023-01-06] MEDS: Apixaban 2.5 MG TAB PO ×2 (08:38→19:14)
[2023-01-06] MEDS: Metoprolol CR 25 MG TABCR PO (08:38)
--- NOTE | 2023-01-06 17:00 | W.PM.PROGNOT ---
Date of Service Date of service: 01/05/23 Time of Service: 12:00 Assessment and Plan Assessment and plan (1) Chronic dental infection: Status: Inactive Assessment and plan: Continue penicillin 500 mg 4 times daily x10 days. (2) Homelessness: Status: Inactive Assessment and plan: Continues to decline SNF. She will need assisted living vs termite control technician care, which she is not currently agreeable to. Case management will continue to help assist with placement. See their notes. (3) Atrial fibrillation: Assessment and plan: History of atrial fibrillation and is in atrial flutter by EKG. She is on Eliquis and diltiazem. Rate is well controlled. She has been refusing medications. Refused lab draws. Continue to encourage she take her usually scheduled meds. (4) Breast lump: Assessment and plan: She has a lump in the left breast region. She states this was worked up at [facility] and not found to be malignant. She states it has not been growing or causing her any symptoms, and then stated she has never had a mammogram. Under ideal circumstances she would agree to have this worked up through a primary care provider in the community. She is not agreeing to this at this time. (5) Mental health disorder: Status: Chronic Assessment and plan: She continues to have delusions of grandeur. She has pressured speech and becomes defensive and angry when asked questions such as where can we get past medical records, etc. discussed with Dr Santacruz Subjective Subjective Patient reports: no new complaints, tolerating a regular diet, voiding w/o difficulty, bowel movement and afebrile; denies diarrhea, nausea, vomiting or shortness of breath Interval history since last seen: Awake, alert, conversant. Wants to go home to [place] to be with her terminally ill, dying son. Care mgrs are assisting with this effort. See their notes. Exam Narrative Exam Narrative: General: alert, awake HEENT: normocephalic, atraumatic; PERRL, EOM intact, conjunctiva normal; no nasal discharge; moist mucous membranes, oral and pharyngeal mucosa normal, tolerating secretions Neck: supple, trachea midline; full ROM Chest: normal to inspection Respiratory: normal respiratory effort, speaking in full sentences, clear to auscultation, no wheezing, rales or rhonchi Cardiac: regular rate, regular rhythm, S1S2 intact, no murmurs rubs or gallops GI: abdomen soft, non-tender, non-distended; no palpable mass or hepatosplenomegaly Skin: Superficial skin tear to dorsum of right hand with steri strips in place, no bleeding Neuro: Alert, interactive, moving all extremities, ambulatory without ataxia Extremities: Moving all extremities Psych: Agitated, loud aggressive speech Objective Last Vital Signs Temp 36.6 C 01/02/23 08:58 Pulse 87 01/04/23 08:25 Resp 18 01/04/23 08:25 BP 131/86 01/04/23 08:25 Pulse Ox 99 01/04/23 08:25 Time Spent with Patient Time Spent with Patient: >50 minutes Time was spent: preparing to see the patient(eg.review tests), obtaining and/or reviewing separately otained hiistory, ordering medications,tests, procedures, referring, communicating with other health care management assistant, indepentently interpreting results, counseling the patient and care coordination
--- NOTE | 2023-01-06 17:29 | PDOC.CMPRO ---
Date of service: 01/06/23 Time of Service: 17:29 Care Management Progress Note Progress Note Text Progress Note Text: Kristina is an 87 year old legally blind female. She is currently staying at [facility] in [facility] status primarily because she is blind and homeless. She indicates that she does not want to live in [place]. Kristina is trying to get back to [place] to be with her son but also needs to go to [place] [employer] to collect her Social Security check and then go to the bank. Per Kristina, she has traveled hundreds of times in the past. David Myers and this lead technical writer met with Kristina twice today to support her with this process. The hospital has arranged transportation to [facility] and a flight to [place].
--- NOTE | 2023-01-06 20:37 | W.PM.PROGNOT ---
Date of Service Date of service: 01/06/23 Time of Service: 13:00 Assessment and Plan Assessment and plan (1) Chronic dental infection: Status: Acute Assessment and plan: Continue penicillin 500 mg 4 times daily x10 days. (2) Homelessness: Status: Acute Assessment and plan: Continues to decline SNF. She will need assisted living vs oysterman care, which she is not currently agreeable to. Case management will continue to help assist with placement. See their notes. (3) Atrial fibrillation: Assessment and plan: History of atrial fibrillation and is in atrial flutter by EKG. She is on Eliquis and diltiazem. Rate is well controlled. She has been refusing medications. Refused lab draws. Continue to encourage she take her usually scheduled meds. EKG from [facility] record - Afib Found Echo from 08/17/22 results from medical records obtained from [facility], EF 60-65%, Mild concentric LVH No regional LV wall motion abnormalities, mild mitral and tricuspid regurgitaitons. She was on diltiazem 180mg bid and coumadin at that time. (4) Breast lump: Assessment and plan: She has a lump in the left breast region. She states this was worked up at [facility] and not found to be malignant. She states it has not been growing or causing her any symptoms, and then stated she has never had a mammogram. Under ideal circumstances she would agree to have this worked up through a primary care provider in the community. She is not agreeing to this at this time. (5) Mental health disorder: Status: Chronic Assessment and plan: She continues to have delusions of grandeur. She has pressured speech and becomes defensive and angry when asked questions such as where can we get past medical records, etc. discussed with Dr Santacruz Subjective Subjective Patient reports: no new complaints, tolerating liquids well, tolerating a regular diet, voiding w/o difficulty, bowel movement and afebrile; denies flatus, diarrhea, nausea, vomiting or shortness of breath Interval history since last seen: HOB up in bed, covers over her. Awake and alert, converant. Still wants to go to [place], [facility]able to leaving Monday evening [facility] [employer] with plane ticket to [place]. . Reviewed with care gmrs. See their note. She provided verbal permission to get old med records from various instititutions. Exam Narrative Exam Narrative: General: alert, awake HEENT: normocephalic, atraumatic; PERRL, EOM intact, conjunctiva normal; no nasal discharge; moist mucous membranes, oral and pharyngeal mucosa normal, tolerating secretions Neck: supple, trachea midline; full ROM Chest: normal to inspection Respiratory: normal respiratory effort, speaking in full sentences, clear to auscultation, no wheezing, rales or rhonchi Cardiac: regular rate, regular rhythm, S1S2 intact, no murmurs rubs or gallops GI: abdomen soft, non-tender, non-distended; no palpable mass or hepatosplenomegaly Skin: Superficial skin tear to dorsum of right hand with steri strips in place, no bleeding Neuro: Alert, interactive, moving all extremities, ambulatory without ataxia Extremities: Moving all extremities Psych: Agitated, loud aggressive speech Objective Last Vital Signs Temp 36.6 C 01/02/23 08:58 Pulse 87 01/04/23 08:25 Resp 18 01/04/23 08:25 BP 131/86 01/04/23 08:25 Pulse Ox 99 01/04/23 08:25 Time Spent with Patient Time Spent with Patient: 35-49 minutes Time was spent: preparing to see the patient(eg.review tests), obtaining and/or reviewing separately otained hiistory, ordering medications,tests, procedures, referring, communicating with other health care giver, indepentently interpreting results, counseling the patient and care coordination
[2023-01-07] MEDS: Acetaminophen 325 MG TAB 650 MG PO ×2 (05:34→19:07)
[2023-01-07 08:10] VITALS: BP 103/68; PULSE 130; RESP 24; TEMP 36.9; O2SAT 98
[2023-01-07] MEDS: guaiFENesin 600 MG TABCR PO ×2 (08:54→19:07)
[2023-01-07] MEDS: dilTIAZem CD 180 MG CAPCR 360 MG PO (08:54)
[2023-01-07] MEDS: Metoprolol CR 25 MG TABCR PO (08:54)
[2023-01-07] MEDS: Apixaban 2.5 MG TAB PO ×2 (08:54→19:07)
--- NOTE | 2023-01-07 19:31 | W.PM.PROGNOT ---
Date of Service Date of service: 01/07/23 Time of Service: 12:00 Assessment and Plan Assessment and plan (1) Chronic dental infection: Status: Acute Assessment and plan: refuses medication (2) Homelessness: Status: Acute Assessment and plan: Continues to decline SNF. She will need assisted living vs detention care, which she is not currently agreeable to. Case management will continue to help assist with placement. See their notes. (3) Atrial fibrillation: Assessment and plan: History of atrial fibrillation and is in atrial flutter by EKG. She is on Eliquis and diltiazem. Rate is well controlled. She has been refusing medications. Refused lab draws. Continue to encourage she take her usually scheduled meds. EKG from [facility] record - Afib Found Echo from 08/17/22 results from medical records obtained from [facility], EF 60-65%, Mild concentric LVH No regional LV wall motion abnormalities, mild mitral and tricuspid regurgitaitons. She was on diltiazem 180mg bid and coumadin at that time. (4) Breast lump: Assessment and plan: She has a lump in the left breast region. She states this was worked up at [facility] and not found to be malignant. She states it has not been growing or causing her any symptoms, and then stated she has never had a mammogram. Under ideal circumstances she would agree to have this worked up through a primary care provider in the community. She is not agreeing to this at this time. (5) Mental health disorder: Status: Chronic Assessment and plan: She continues to have delusions of grandeur. She has pressured speech and becomes defensive and angry when asked questions such as where can we get past medical records, etc. Patient refuses lab tests and refusing most medication. She is eating and drinking. discussed with Dr Quintana Subjective Subjective Patient reports: no new complaints, tolerating liquids well, tolerating a regular diet, voiding w/o difficulty, bowel movement and afebrile; denies flatus, diarrhea, nausea or shortness of breath Interval history since last seen: Kristina is unchanged since admission. She is mostly disagreeable. Objective Last Vital Signs Temp 36.9 C 01/07/23 08:10 Pulse 130 H 01/07/23 08:10 Resp 24 01/07/23 08:10 BP 103/68 01/07/23 08:10 Pulse Ox 98 01/07/23 08:10 Laboratory Results - last 24 hr 01/06/23 01/06/23 05:35 05:35 WBC Cancelled RBC Cancelled Hgb Cancelled Hct Cancelled MCV Cancelled MCH Cancelled MCHC Cancelled RDW Cancelled Plt Count Cancelled MPV Cancelled Immature Gran % Cancelled Neutrophils % Cancelled Band Neutrophils % Cancelled Lymphocytes % Cancelled Atypical Lymphs % Cancelled Monocytes % Cancelled Eosinophils % Cancelled Basophils % Cancelled Metamyelocytes % Cancelled Myelocytes % Cancelled Promyelocytes % Cancelled Other Cells % Cancelled Nucleated RBC % Cancelled Absolute Neutrophils Cancelled Absolute Lymphocytes Cancelled Absolute Monocytes Cancelled Absolute Eosinophils Cancelled Absolute Basophils Cancelled RBC Morphology Cancelled Polychromasia Cancelled Hypochromasia Cancelled Poikilocytosis Cancelled Basophilic Stippling Cancelled Anisocytosis Cancelled Microcytosis Cancelled Macrocytosis Cancelled Spherocytes Cancelled Tear Drop Cells Cancelled Ovalocytes Cancelled Stomatocytes Cancelled Zhou-[place] Bodies Cancelled [place] Cells/Echinocytes Cancelled Acanthocytes (Spur) Cancelled Schistocytes Cancelled Sodium Cancelled Potassium Cancelled Chloride Cancelled Carbon Dioxide Cancelled Anion Gap Cancelled BUN Cancelled Creatinine Cancelled Est GFR (CKD-EPI 2020) Cancelled Glucose Cancelled Calcium Cancelled Magnesium Cancelled Time Spent with Patient Time Spent with Patient: 25-34 minutes Time was spent: referring, communicating with other health anesthesiologist and critical care, counseling the patient and care coordination
[2023-01-08] MEDS: Acetaminophen 325 MG TAB 650 MG PO ×2 (03:21→19:21)
[2023-01-08 07:56] VITALS: BP 136/66; PULSE 109; RESP 18; TEMP 37; O2SAT 98
[2023-01-08] MEDS: dilTIAZem CD 180 MG CAPCR 360 MG PO (07:57)
[2023-01-08] MEDS: guaiFENesin 600 MG TABCR PO ×2 (07:57→19:21)
[2023-01-08] MEDS: Apixaban 2.5 MG TAB PO ×2 (07:57→19:22)
[2023-01-08] MEDS: Metoprolol CR 25 MG TABCR PO (07:57)
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
--- NOTE | 2023-01-08 22:00 | NUR.NOTE ---
Nursing Note: Pt transported to car transport to airport via WC with yellow duffel bag and cardboard box containing belongings. Transferred into backseat of car. magazine supervisor provided pt with airline ticket. Pt signed DC paperwork. Denies questions or concerns.
--- NOTE | 2023-01-09 07:42 | OTDS_ITS ---
Occupational Therapy Notes Occupational Therapy Inpatient Discharge Summary Date: 01/09/23 Dates of Service: 01/04/23-01/06/23 Date: 01/04/23 Referring Doctor:Cici Shukla NP OT Orders: Non Urgent- Limited ability Precautions: Fall, standard, full *This document serves as a summary of care, no skilled OT services were provided for this documentation* PATIENT PROFILE/ADMITTING DIAGNOSIS: Pt is an 87 year old female who was admitted to [facility] through the ED as a palliative care pt for the following dx of hypomania, mental health disorder, chronic dental infection, homelessness. With barriers including assessment of barriers to meet care plan, family estrangement, legal blindness, Bipolar 1 disorder with moderate farzaneh. Past Medical History: All Active Problems Mental health disorder (Acute) Chronic dental infection (Acute) Homelessness (Acute) Medical History?(Updated 12/28/22 @ 18:39 by Kyle Anthony MD) Atrial fibrillation Breast lump Glaucoma blindness x 5 1/2 yearsLung mass Social History/Home Situation: Pt is a poor historian, she is not able to provide a clear baseline of her home situation. She states to OT that she, obviously doesn't live alone because shes blind. Equipment owned/DME: unable to assess SUBJECTIVE:?NT OBJECTIVE:? *Based on assessment of skills during stay, no skilled OT services provided for this documentation. Pain: no c/o pain ROM: RUE AROM WFL L UE AROM WFL STRENGTH: RUE 5/5 throughout LUE 5/5 throughout FUNCTIONAL MOBILITY/ADLS:? EATING Pt was sitting in bed she required max (A) set up but is (I) with hand to mouth without (A) needed. Toileting with (A) of functional mobility but otherwise (I) ASSESSMENT:?? Patient is a 87-year-old female referred to occupational therapy services with diagnosis of hypomania, mental health disorder, chronic dental infection, homelessness. With barriers including assessment of barriers to meet care plan, family estrangement, legal blindness, Bipolar 1 disorder with moderate farzaneh. Patient was very argumentive at times and in disagreement if she did not want to do something but overall was (I) with toileting and eating with (A) for set up. GOALS 1.? Grooming- (I)- met 2.? Dressing seated with max (A) set up (I)- pt refused 3.? Bathing seated (I)- pt refused 4.? Toileting on commode (I)- met PLAN OF CARE/TREATMENT PLAN: Pt was medically cleared per MD to return home to [place] DISCHARGE RECOMMENDATIONS Pt is very confused and congitively challenged. OT is unable to assess to know if this is patient's baseline. OT recommends that she will need 24 hour supervision vs. SNF to (A) with ADLs/IADLs. Her vision is a limiting factor and she is not able to provide transportation for herself. Functionally she can perform tasks but requires max (A) Set up/clean up. TREATMENT TIME/MINUTES/CODES N/A Jessie Ivan OTR/L [facility] [place], [place]
== END 2022-12-30 11:15 | disposition intermediate care facility (04) | DRG 159 ==
LOC: ER 12-28 22:59 → MS 12-29 11:11
PROVIDERS: Emergency Medicine; Admitting Provider Internal Medicine; Emergency Provider Emergency Medicine; Visit Provider Internal Medicine
DX: K04.7 Periapical abscess without sinus (principal); Z59.00 Homelessness unspecified; I48.91 Unspecified atrial fibrillation; N63.0 Unspecified lump in unspecified breast; F99 Mental disorder, not otherwise specified
CPT/HCPCS: 12002; 80048; 80053; 80307; 83690; 93005; 96372; 97166; 97535; 99285; 70450; 71045; 81003; 81015; 83735; 83880; 84100; 84443; 84484; 85025; 85610; 85730; 93010; 99222; 99232; 99239; J1630; J2060

== ENCOUNTER 2022-12-30 11:15 | Inpatient (IN) | payer OTHER, SELFPAY ==
--- OUTSIDE RECORDS SUMMARY | 2023-01-05 15:55 | XMS_ITS | Continuity of Care Document ---
Author Name Unknown Address [address] [place] [id number] Phone [facility] Address [address] [place] [id number] Phone Care Team Providers Care Survey Research Analyst Name Role Phone PCP, Not Given Primary Care Provider MD Lela Burden Emergency Provider Care Teams Patient Care Team Team Status: Active Member Role Status Dates Not Given PCP Primary Care Provider Active Visit Care Team Team Status: Inactive Member Role Status Dates Not Given PCP Primary Care Provider Active Lela Story MD Emergency Provider Active Chief Complaint and Reason for Visit Chief Complaint UNKNOWN Allergies, Adverse Reactions, Alerts No known allergies Social History Smoking Status Unknown if ever smoked Observation Status Observation Response Date of Response Alcohol Use No November 18, 2022 1 1:22am Substance/Street Drug Use No November 182022 11:22am Substance Use Treatment No October 11:22am Additional Data Assigned Sex Female Problems Active Problems Medical Problem Onset Date Status Legal blindness Active Homeless Active Atrial fibrillation with RVR Act nicol Medications Medication Status Dose Units Route Directions Qty Days St art Date End Date Instructions Penicillin V Potassium Active 500 MG PO FOUR TIMES DAILY November 18, 2022 12:00a m Diltiazem Hcl Active 360 MG PO DAILY November 18, 2022 12:00a m Flecainide Discontinue d 100 MG PO TWICE A DAY November 18, 2022 12:00a m November 18, 2022 7:01p m Rosuvastatin Discontinue d 40 MG PO BEDTIME November 18, 2022 12:00a m November 18, 2022 7:03p m Apixaban (Eliquis) 5 mg tablet Active 2.5 MG PO TWICE A DAY November 18, 2022 12:00a m Metoprolol Succinate Active 25 MG PO TWICE A DAY November 18, 2022 12:00a m Procedures Procedure Date Performed Status EKG November 18, 2022 11:15am completed Chest 1 vw November 18, 2022 12:32pm completed EKG November 18, 2022 2:43pm completed Relevant Diagnostic Tests and/or Laboratory Data Diagnostic Imaging Reports Author Alexey Meraz [facility] November 18, 2022 1:23pm Report Date/Time November 18, 2022 1:23p [facility] EKG PATIENT NAME: DELGADO KOROMA [age] DATE OF : 1935 ATTENDING PHYSICIAN: PRIMARY CARE PHYS: Not Given DICTATING PHYSICIAN: Alexey Meraz MD REPORT STATUS: Signed Test Reason : elevated HR Blood Pressure : / mmHG Vent. Rate : 142 BPM Atrial Rate : 284 BPM P-R Int : 000 ms QRS Dur : 062 ms QT Int : 298 ms P-R-T Axes : -70 060 038 degrees QTc Int : 458 ms Atrial flutter with 2:1 AV conduction Abnormal ECG No previous ECGs available Confirmed by Alexey Meraz ([id number]) on 11/18/2022 1:23:06 PM Referred By: Alexey Meraz Confirmed By:Alexey Meraz 11/18/22 1323 cc: ~ Author Alexey Meraz [facility] November 18, 2022 3:08pm Report Date/Time November 18, 2022 3:08p [facility] EKG PATIENT NAME: DELGADO KOROMA [age] DATE OF : 1935 ATTENDING PHYSICIAN: PRIMARY CARE PHYS: Not Given DICTATING PHYSICIAN: Alexey Meraz MD REPORT STATUS: Signed Test Reason : improved HR Blood Pressure : / mmHG Vent. Rate : 070 BPM Atrial Rate : 280 BPM P-R Int : 000 ms QRS Dur : 130 ms QT Int : 400 ms P-R-T Axes : 220 034 031 degrees QTc Int : 432 ms Atrial flutter with 4:1 AV conduction Right bundle branch block Abnormal ECG When compared with ECG of 18-NOV-2022 10:21, Vent. rate has decreased BY 72 BPM Right bundle branch block is now present Confirmed by Alexey Meraz ([id number]) on 11/18/2022 3:08:16 PM Referred By: Alexey Meraz Confirmed By:Alexey Meraz 11/18/22 1508 cc: ~ Author Franchesca Arora [facility] November 18, 2022 5:04pm Report Date/Time November 18, 2022 5:06p m [facility] RAD[facility] REPORT PATIENT NAME: DELGADO KOROMA 44 DATE OF : 1935 ATTENDING/ER PHYSICIAN: ER/ATTENDING PHYSICIAN: Alexey Meraz MD PRIMARY CARE PHYS: Not Given ADMITTING PHYSICIAN: CONSULTING PHYSICIAN: PROCEDURE DATE: 11/18/22 REPORT STATUS: Signed DICTATING PHYSICIAN: Franchesca Arora MD REASON FOR EXAM: chronic cough STUDY: AP view of the chest with no comparison. FINDINGS: The cardiomediastinal silhouette is normal. There is no pneumonia, edema, pleural effusion or pneumothorax. Hyperinflation, upper lobe predominant hyperlucency and prominent interstitial markings are suggestive of COPD. Linear subpleural scarring is noted in the left lower lobe. Cervicothoracic spondylosis is noted. CONCLUSION: No acute cardiopulmonary abnormalities. dd: 11/18/221702 <Electronically signed by Franchesca Arora MD in OV> 11/18/221703 Vital Signs Vital Reading Result Reference Range Collection Date/Time Weight 56.00 kg November 18, 2022 10:38am Body Temperature 97.9 [degF] 97.6-99.6 November 20, 2 023 7:45am Heart Rate 89 /min 60-100 November 20, 2022 7:45am Respiratory rate 19 /min 12-24 November 20, 2 023 7:45am Oxygen saturation by Pulse oximetry 99 % 95-100 November 20, 2022 7:45a m BP Systolic 112 mm[Hg] 100-140 November 20, 2022 7:45am BP Diastolic 71 mm[Hg] 50-85 November 20, 2022 7:45am Advance Directives Advance Directive Response Recorded Date/ Time Does patient have an Advance Directive? No November 18, 2022 3:22pm Does patient have a COLST form? No May 19th, 2023 3:22pm Encounters Encounter Location(s) Arrival/Admit Date Discharge/Depart Date Provider(s) Departed Emergency [facility]-Emergency Department November 18, 2022 10:31am November 20, 2022 11:01am null Functional Status Observation Response Date Recorded Living Situation Home November 20, 2022 11:01am Mental Status Observation Response Date Recorded Comprehension Ability Understands Concepts October 312022 11:05am Speech Appropriate November 18, 2022 1 1:05am Clear November 18, 2022 1 1:05am Mood/Behavior Appropriate November 20, 2022 8 :00am Plan of Treatment Future Tests Future scheduled test information is unavailable Pending Tests Pending diagnostic test information is unavailable Future Visits Future appointment information is unavailable Referrals to Other Providers Reason for Referral Referral Start Date Provider Provider Contact Information Provider Address Not Given Future Procedures Procedure Name Ordered Date Scheduled Date Case Management Consult November 19, 2022 7:58am Ma y 2022 7:58am Future Medications Future medication information is unavailable Patient Instructions Atrial Fibrillation (DC) Hospital Discharge Instructions Additional Instructions You have decided to leave the emergency department to take a taxi cab to [facility] to get a plane to [facility] to stay with your son in [place]. We have encouraged you to stay in the emergency department to continue to help you with housing. We have tried to reach your case maker Vamsi through age well today though he is unavailable and encourage you to stay in the ER until Monday morning when we can help you further. You have decided to leave. We are arranging a taxicab for you to go to [facility]. We are very concerned about your legal blindness and the ability to navigate in a safe manner and take your medications in a safe way. We strongly encourage you to follow-up with your primary care provider when you return to [place]. Return to the ED immediately for any concerning symptoms. Patient contact information: Primary phone: (Note to patient; Please let our registration staff know if this phone number is not correct so we can keep our systems accurate) *Regarding pending labs, you will only be called for positive/abnormal results. Negative/normal results can be found on the patient portal.
== END 2023-01-07 21:54 | disposition home or self-care (01) | DRG 159 ==
LOC: MS 01-09 10:40
PROVIDERS: Admitting Provider Internal Medicine; Visit Provider Internal Medicine
DX: K04.7 Periapical abscess without sinus (principal); Z59.00 Homelessness unspecified; F99 Mental disorder, not otherwise specified; F30.8 Other manic episodes

== ENCOUNTER 2023-01-19 13:08 | Emergency (ER) | payer OTHER, SELFPAY ==
[2023-01-19 13:20] VITALS: BP 106/68; PULSE 69; RESP 18; TEMP 37.6; O2SAT 99
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
== END 2023-01-19 17:20 | disposition home or self-care (01) ==
PROVIDERS: Emergency Provider Emergency Medicine
DX: Z02.89 Encounter for other administrative examinations (principal)
CPT/HCPCS: 99282

== ENCOUNTER 2023-02-18 02:09 | Emergency (ER) | payer OTHER, SELFPAY ==
[2023-02-18 02:16] VITALS: BP 159/87; PULSE 80; RESP 20; TEMP 36.5; O2SAT 98
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
[2023-02-18 03:02] LABS: Abs Immature Grans 0.04 10^3/uL (0.0-0.06); Absolute Eosinophil Count 0.36 10^3/uL (0.0-0.7); Absolute Lymphocyte Count 2.66 10^3/uL (1.2-3.4); Absolute Monocyte Count 0.72 10^3/uL (0.1-0.8); Absolute Neutrophil Count 4.95 10^3/uL (1.2-6.7); Basophils % 1.1; Eosinophils % 4.1; HCT 44.2 % (36.0-46.0); HGB 14.6 g/dL (11.2-15.7); Immature Grans % 0.5; Lymphocytes % 30.1; MCH 28.3 pg (27.0-33.0); MCV 86 fL (80-95); MPV 11.7 fL (8.0-11.0); Monocytes % 8.2; Platelet Count 204 10^3/uL (130-400); RBC 5.15 10^6/uL (3.93-5.22); RDW 13.5 % (11.7-14.6); RDW-SD 42.1 fL; WBC 8.83 10^3/uL (4.4-10.8)
--- NOTE | 2023-02-18 03:16 | NUR.NOTE ---
Pt belongings logged. Perishable food thrown out. Pt made aware of that and ok with this. Pt has many papers in her belongings. Pt was asked if it was ok for staff read through these papers in order to gain better insight, to which pt agreed. Belongings were brought to the dirty utility.
--- NOTE | 2023-02-18 03:27 | NUR.NOTE ---
1st cert has been sent to [facility] per request by Judith
[2023-02-18 03:33] LABS: ALT 21 U/L (14-59); AST 18 U/L (15-37); Albumin 3.8 g/dL (3.4-5.0); Alkaline Phosphatase 96 U/L (46-116); BUN 25 mg/dL (7-18); Bilirubin, Total 0.4 mg/dL (0.2-1.0); Chloride 108 mmol/L (98-107); Estimated GFR 54.87 (mL/min/1.73m2); Glucose 102 mg/dL (74-106); Potassium 3.6 mmol/L (3.5-5.1); Sodium 145 mmol/L (136-145); TSH (W/Ref FT4) 3.94 uIU/mL (0.36-3.74); Total Protein 7.3 g/dL (6.4-8.2)
[2023-02-18 03:42] LABS: Salicylate < 2.8 mg/dL (<2.8)
[2023-02-18 03:43] LABS: Acetaminophen < 2 ug/mL (10-30)
[2023-02-18 03:51] LABS: ETHANOL BLOOD < 3.0 mg/dL (<10)
[2023-02-18 04:00] LABS: FREE T4 0.96 ng/dL (0.76-1.46)
[2023-02-18] MEDS: dilTIAZem CD 180 MG CAPCR 360 MG PO (09:53)
[2023-02-18] MEDS: Metoprolol 25 MG TAB PO ×2 (10:14→21:54)
--- NOTE | 2023-02-18 12:26 | NUR.NOTE ---
Nursing Note: 1225 [facility] called and declined the patient.
--- NOTE | 2023-02-18 17:15 | PDOC.CMPRO ---
Date of service: 02/18/23 Time of Service: 17:15 Care Management Progress Note Progress Note Text Progress Note Text: S/O: Kristina arrives in the ED via police after a Warrant for Emergency Examination is obtained by [facility]. The Warrant is based on Kristina's past and present behavior and alleges she is a danger to herself and others because of her lack of insight, potential shinto and persecutory delusions especially when she is combative, attempting to jump out of moving vehicles and refusing to engage in readily available services offered. Kristina met with a State Psychiatrist this afternoon for the Second Certification by Psychiatrist. She refused to engage, so the involuntary status was upheld based on the information provided in the Warrant. A safety plan is not created for patient as ED provider states a CPSO is not necessary at this time as patient requires assistance to get out of bed and is denying SI/HI. Patient has been calm and cooperative thus far. The need for a safety plan will be revisited at a later time if patient's behavior deteriorates. A: Kristina is an 87 year old female who remains at [facility] on involuntary status. P: Referrals are faxed to [facility], [facility], [facility], and [facility] for [facility]. The [facility] has already declined patient. Kristina will remain at [facility] and will be reassessed twice daily by [facility] until a placement is secured for her or she is walked off of involuntary status and discharged back to the community. CM will continue to follow.
[2023-02-18 17:31] LABS: Bilirubin Negative (Negative); Blood Trace-intact (Negative); Clarity Clear (Clear); Glucose Negative (Negative); Ketones Negative (Negative); Leukocyte Esterase Negative (Negative); Nitrite Negative (Negative); Urobilinogen 0.2 mg/dL (Up to 0.2)
[2023-02-18 17:33] LABS: *AMPHETAMINES SCREEN URINE Negative (Negative); *BARBITURATES SCREEN URINE Negative (Negative); *BENZODIAZEPINES SCREEN URINE Negative (Negative); Cannabinoids THC Negative (Negative); Cocaine Screen,Urine Negative (Negative); METHADONE URINE SCREEN Negative (Negative); OPIATES URINE SCREEN Negative (Negative)
[2023-02-18 17:35] LABS: Tricyclic Antidepressants Negative (Negative)
[2023-02-18 17:45] LABS: Bacteria Negative HPF (Negative); C & S Indicated? No; Casts Negative LPF (Negative); Crystals Negative HPF (Negative); Epithelial Cells Few HPF (Negative); Mucus Negative (Negative); RBC 0-2 HPF (0-2)
--- NOTE | 2023-02-18 18:23 | PDOC.MHCN_ITS ---
Date of service: 02/18/23 Time of Service: 11:15 Mental Health Emergency Note Release [facility] release signed:: No Reason for Visit The client is an 87 year old, female who is homeless in [place] but has traveled per her report from [place] but would not specify where in [place]. She is known to witnesses as Kristina Carlos however, after her last stay at [facility] they were able to find a valid license that showed her name as Kristina Yee, which is the discre pancy in this Warrant/witness statements. The client first arrived in October of 2022 from [facility], brought to [place] [employer] at her request, then again in December of 2022 where she was EE?d but it did not pass and so [facility] bought her a ticket to [place], and now today 02.17.2023 via [place] [employer], as it was not showing in [facility] that she had a no trespass form them as well. She is homeless with no natural supports in the area despite growing up here. She had a brother in [facility] that in 2019 who was a well cleaner for [facility] ([employer] The client is visually impaired however, states that she can see shapes and objects. She is presenting as unable to stand on her own or navigate on her own without assistance. Client is seen in person at [facility] ED for 1st daily QMHP assessment. In the last 2 weeks has the pt presented for ES prior to today?: Yes, presented at ED at another facility Client Information Client is: New Well Housed: No,status: Homeless Non Suicidal Self Injury Current: No History: No Safety Risk/Harm to Self or Others Current Ideation to Harm Self or Others: No Risk: Does risk to harm exist?: yes. Access to means: No. Risk: High Risk Duty to warn indicated: No Asssessment/Mental Status Appearance: Disheveled and Poor hygiene Attitude: Demanding and Guarded Behavior: Hyperactivity and Agitated Speech: Pressured and Loud Affect: Expansive and Cogruent with mood Mood: Elevated, Stressed, Irritable and Angry Thought process: Loose associations and Flight of ideas Hallucinations: No Delusions: No Attention: Wandering and Poor concentration Perception: Not impaired Orientation: Fully orientated Memory: Intact Insight: Poor Judgement: Poor Neurovegetative Symptoms Sleep: Decrease Appetitie: Decrease Interests: Decrease Energy: Decrease Libido: Not applicable Substance Use: Do you use nicotine?: No Have you used substances in the last 7 days?: No Additional Issues: Assaultive/Threatening Behavior: Yes Medical Concerns: No Client engaged in active self harm w/weapon: No Child reported abuse/neglect: No Voluntarily presenting for services: No Domestic violence is a concern: No Extreme Psychosis or extreme behavior is present: Yes Impression The client is an 87 year old, female who is homeless in [place] but has traveled per her report from [place] but would not specify where in [place]. She is known to witnesses as Kristina Gonzalez however, after her last stay at [facility] they were able to find a valid license that showed her name as Kristina Yee, which is the discrepancy in this Warrant/witness statements. The client first arrived in October of 2022 from [facility], brought to [place] [facility] at her request, then again in December of 2022 where she was EE?d but it did not pass and so [facility] bought her a ticket to [place], and now today 02.17.2023 via [facility], as it was not showing in [facility] that she had a no trespass form [facility] as well. She is homeless with no natural supports in the area despite growing up here. She had a brother in [place] that in 2019 who was a well cleaner for [facility] ([employer]). The client is visually impaired however, states that she can see shapes and objects. She is presenting as unable to stand on her own or navigate on her own without assistance. When this promotion writer enters the clients room she is observed to be laying down on the hospital bed dressed in paper pants and a sweat shirt and flannel shirt on the top. Clients appearance is very disheveled. When this promotion writer asks the client how she is doing today she states: I am hanging in there for a young kid at 87. 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 Client appears to showing poor insight and judgment as she has very minimal recollection of events that happened yesterday. The client is able to recall that a woman from the [place] police department brought her over. Client reports: I don't do bad things, I help people. I don't know why other people don't help me. Client reports to this promotion writer that she just wants to get back to [place] to see her dying son who is 69 y/o and living in her car. This promotion writer attempts to explain to the client that she is on an involuntary hold, but she appears to become irate and is yelling and screaming at this promotion writer. The client denies SI/HI stating: what are you crazy I am a [employer] woman, I would never think like that. Plan/Disposition Recommended Disposition: Hospitalization (Referral and warrant information faxed to all hospitals. ) facilities contacted. Plan: Client will remain at [facility] ED on EE status pending 2nd certification that will happen later today. Client will be re-assessed 2x daily by a QMHP. Person reported agreement to plan: No Facilities contacted if Applicable [facility] Not accepted, No bed available [facility] Not accepted, Only accepting in house referrals [facility] Not accepted, Only accepting in house referrals, [facility] Not accepted, Acuity Reports/communication Outcome discussed with: ED/Personnel (verbal passover given to ED provider )
--- NOTE | 2023-02-18 20:26 | W.EDPROG ---
Date of service: 02/18/23 Time of Service: 20:27 Medical Decision Making Second certification has been completed. Patient is on involuntary hold. Awaiting placement. Sign Out Sign Out Data: Sign Out Comment: irrational behavior, reportedly tried to jump out of a vsp car so is on involuntary status, is calm and cooperative during stay so far and no si/hi Last updated by Kyle Mesa MD at 02/18/23 05:32 Discharge Plan Discharge Details Chief Complaint: PsychEval Primary Care Provider: Unknown,Unknown ED Provider: Scar Garza Home Meds and New Rx's Prescriptions: No Action diltiazem HCl 360 mg capsule,extended release 24hr 360 mg PO 1XD Patient Comments: take 1 capsule (360MG TOTAL) by mouth once daily metoprolol succinate 25 mg Tablet Extended Release 24 Hr 25 mg PO 2XD Eliquis 2.5 mg Tablet 2.5 mg PO 2XD
--- NOTE | 2023-02-18 21:29 | W.EDPROG ---
Date of service: 02/18/23 Time of Service: 21:29 Medical Decision Making per sign out had his second cert done and is still on involuntary status for irrational behavior, currently calm resting in bed, will continue to monitor until safe dispo found Sign Out Sign Out Data: Sign Out Comment: irrational behavior, reportedly tried to jump out of a vsp car so is on involuntary status, is calm and cooperative during stay so far and no si/hi Last updated by Kyle Mesa MD at 02/18/23 05:32 Sign Out Comment: second cert complete, involuntary, awaiting placement Last updated by Scar Garza MD at 02/18/23 20:31 Discharge Plan Discharge Details Chief Complaint: PsychEval Clinical Impression: Impaired decision making Primary Care Provider: Unknown,Unknown ED Provider: Kyle Mesa Home Meds and New Rx's Prescriptions: No Action diltiazem HCl 360 mg capsule,extended release 24hr 360 mg PO 1XD Patient Comments: take 1 capsule (360MG TOTAL) by mouth once daily metoprolol succinate 25 mg Tablet Extended Release 24 Hr 25 mg PO 2XD Eliquis 2.5 mg Tablet 2.5 mg PO 2XD
[2023-02-18] MEDS: Apixaban 2.5 MG TAB PO (21:30)
[2023-02-19] MEDS: dilTIAZem CD 180 MG CAPCR 360 MG PO (09:52)
[2023-02-19] MEDS: Metoprolol 25 MG TAB PO ×2 (09:53→20:57)
[2023-02-19] MEDS: Apixaban 2.5 MG TAB PO ×2 (09:54→21:42)
--- NOTE | 2023-02-19 10:36 | NUR.NOTE ---
Nursing Note: Pt threatening to throw herself on the floor if we do not turn down the air conditioning. warm blankets offered and accepted.
[2023-02-19 11:15] VITALS: BP 130/82; PULSE 88; RESP 20; TEMP 36.8; O2SAT 97
--- NOTE | 2023-02-19 18:19 | MHPN_ITS ---
Date of service: 02/19/23 Time of Service: 18:20 Mental Health Emergency Note Release [facility] release signed:: Yes Reason for Visit The client is an 87 year old, female who is homeless in [place] but has traveled per her report from [place] but would not specify where in [place]. She is known to witnesses as Kristina Carlos however, after her last stay at [facility] they were able to find a valid license that showed her name as Kristina Yee, which is the discr epancy in this Warrant/witness statements. The client first arrived in October of 2022 from [facility], brought to [facility] at her request, then again in December of 2022 where she was EE?d but it did not pass and so [facility] bought her a ticket to [place], and now today 02.17.2023 via [employer], as it was not showing in [employer] that she had a no trespass form [employer] as well. She is homeless with no natural supports in the area despite growing up here. She had a brother in [place] [facility] that in 2019 who was a associate juvenile court judge for [facility] ([employer]). The client is visually impaired however, states that she can see shapes and objects. She is presenting as unable to stand on her own or navigate on her own without assistance. Client is seen in person at [facility] ED for 1st daily QMHP assessment. In the last 2 weeks has the pt presented for ES prior to today?: Yes, presented at [facility] ED, ED at another facility and [facility] Impression The client is an 87 year old, female who is homeless in [place] but has traveled per her report from [place] but would not specify where in [place]. She is known to witnesses as Kristina Gonzalez however, after her last stay at [facility] they were able to find a valid license that showed her name as Kristina Yee, which is the discrepancy in this Warrant/witness statements. The client first arrived in October of 2022 from [facility], brought to [facility] at her request, then again in December of 2022 where she was EE?d but it did not pass and so [facility] bought her a ticket to [place]. On 02.17.2023 she arrived back to [facility] via [employer], as it was not showing in [employer] that she had a no trespass from them as well. She is homeless with no natural supports in the area despite growing up here and family living close by. She had a brother in [facility] that in 2019 who was a associate juvenile court judge for [facility] ([employer]). The client is visually impaired however, states that she can see shapes and objects. She is presenting as unable to stand on her own or navigate on her own without assistance. When this clinician enters the clients room she is observed to be laying down on the hospital bed dressed in paper pants and a sweatshirt and flannel shirt on the top. The client presented as being polite and kind this evening. She uses her manners consistently as if to develop an alliance of some kind. I would love for you or someone from your agency to come with me back to [place] so that you can meet my son, Adrian. You are a mother so you understand the connection. I worry my son is alone and in a great deal of pain and he won't be here long because of his diagnosis. I want to be able to hold his hand and be with him. The client has had no changes in her thought process today and still unable to figure out a concrete plan of how sh is to return to [place] without misusing community partners etc. She is still meeting criteria of a person in need. Plan/Disposition Recommended Disposition: Hospitalization facilities contacted. Plan: The client will remain at [facility] for the evening and be re-evaluated in the am while placement is being sought. Person reported agreement to plan: No Reports/communication Outcome discussed with: ED/Personnel
--- NOTE | 2023-02-19 18:23 | PDOC.CMPRO ---
Date of service: 02/19/23 Time of Service: 18:23 Care Management Progress Note Progress Note Text Progress Note Text: S/O: Kristina remains at [facility] on involuntary status. She again today has been mostly calm and cooperative and staff have not reported any behavioral issues. She met with Judith [facility] Crisis Screener, this morning for a reassessment. Per ED provider, as long as patient is demonstrating appropriate behavior and continues to deny SI/HI, there is no need for a safety plan. A: Kristina is an 87 year old female who remains at [facility] on involuntary status while awaiting placement. P: Plan is unchanged. Kristina will remain at [facility] and will be reassessed twice daily by [facility] until a placement is secured for her or she is walked off of the and can be safely discharged back to the community. CM will continue to follow Status Status: Involuntary Reason for Wait: Inpatient Admission
--- NOTE | 2023-02-19 20:43 | W.EDPROG ---
Date of service: 02/19/23 Time of Service: 20:43 Medical Decision Making pt here involuntary for irrational behavior, currently calm and cooperative, will continue to monitor until safe dispo found, no acute complaints at this time. Sign Out Sign Out Data: Sign Out Comment: irrational behavior, reportedly tried to jump out of a vsp car so is on involuntary status, is calm and cooperative during stay so far and no si/hi Last updated by Kyle Mesa MD at 02/18/23 05:32 Sign Out Comment: second cert complete, involuntary, awaiting placement Last updated by Scar Garza MD at 02/18/23 20:31 Sign Out Comment: pending placement no issues overnight Last updated by Kyle Mesa MD at 02/18/23 23:33 Sign Out Comment: EE, second cert complete, awaiting placement Last updated by Scar Garza MD at 02/19/23 19:41 Discharge Plan Discharge Details Chief Complaint: PsychEval Clinical Impression: Impaired decision making Primary Care Provider: Unknown,Unknown ED Provider: Kyle Mesa Home Meds and New Rx's Prescriptions: No Action diltiazem HCl 360 mg capsule,extended release 24hr 360 mg PO 1XD Patient Comments: take 1 capsule (360MG TOTAL) by mouth once daily metoprolol succinate 25 mg Tablet Extended Release 24 Hr 25 mg PO 2XD Eliquis 2.5 mg Tablet 2.5 mg PO 2XD
--- NOTE | 2023-02-20 07:41 | W.EDPROG ---
Date of service: 02/20/23 Time of Service: 07:41 Medical Decision Making I received signout patient in the emergency department in setting of an EE. No acute issues last shift. We will update documentation as clinically warranted and signed patient out to the oncoming evening attending. 4:26 PM No acute mental health needs during my shift. No involuntary medications. No restraints. I signed patient out to Dr. Blackman. Sign Out Sign Out Data: Sign Out Comment: irrational behavior, reportedly tried to jump out of a vsp car so is on involuntary status, is calm and cooperative during stay so far and no si/hi Last updated by Kyle Mesa MD at 02/18/23 05:32 Sign Out Comment: second cert complete, involuntary, awaiting placement Last updated by Scar Garza MD at 02/18/23 20:31 Sign Out Comment: pending placement no issues overnight Last updated by Kyle Mesa MD at 02/18/23 23:33 Sign Out Comment: EE, second cert complete, awaiting placement Last updated by Scar Garza MD at 02/19/23 19:41 Sign Out Comment: on EE for irrational judgement, no issues during shift Last updated by Kyle Mesa MD at 02/20/23 00:09 Discharge Plan Discharge Details Chief Complaint: PsychEval Clinical Impression: Impaired decision making Primary Care Provider: Unknown,Unknown ED Provider: Alexis Knox Home Meds and New Rx's Prescriptions: No Action diltiazem HCl 360 mg capsule,extended release 24hr 360 mg PO 1XD Patient Comments: take 1 capsule (360MG TOTAL) by mouth once daily metoprolol succinate 25 mg Tablet Extended Release 24 Hr 25 mg PO 2XD Eliquis 2.5 mg Tablet 2.5 mg PO 2XD
--- NOTE | 2023-02-20 09:15 | CMPROGNOTE_ITS ---
Date of service: 02/20/23 Time of Service: 09:15 Care Management Progress Note Progress Note Text Progress Note Text: CHAR responded to [employer] AMOS event in Parkinglot A on 02/17/23 at approx 1730. On approach, Kristina was standing next to a car loudly saying mino, mino, can someone help me? A few known [facility] staff stood approx 50 ft away talking to an unknown adult female wearing a badge. CM approached this lady, who explained she had drove Kristina here because we were told you would make her incompetent. Of note: the email below was forwarded to this play writer after being recieved on [id number]/[email or web address]. Andrea Lindsey, Tre HW that you might recall is circulating, and continues to be in crisis. Did [facility] have two doctors that found her to lack capacity? If so, can you please send me that information encrypted so I can share it with the [facility] on Aging team leads who are trying to assist the client as she moves along and needs further intervention? Please let me know if you?d like more information prior to sending things along. Thank you Era Villaseñor MA Director of Care and Support Services [facility] [place] on Aging? CHAR approached Kristina who immediately said that she did not want to be at [facility] and knew there was a no trespassing order for her on the grounds. She stated the otr van cdl truck driver had lied to her and was setting her up to break the law as she had a no trespass on the property. A Panelboard Tank Pumper ?Hernandez approached to question Kristina who shared the same information with him. She stated she wanted to be out of [place] and go to [place], [place]. Of note, Kristina first presented to the [facility] area from [place], a few monthes ago. Kristina, though frustrated, engaged appropriately and was accurate in describing the reasons she did not want to be at [facility]. Furthermore, she presented facts such as the no trespass order, stating that she did not want to be in this area, and was brought here against her will, and that they were trying to take her rights away; CM validated this information to the officer and noted the email recieved earlier as well as the statement from the otr van cdl truck driver (Possbily out of doctors hospital [place] on Aging?). The officers reported they were driving Kristina to [facility] to be evaluated, which was in line with her wanting to go to a different hospital south of here, if she could not get to [place]. CM checked out with Nursing Tube Cutter, and left for the day. CM arrived back to [facility] this morning to find Kristina had been EE'd and held against her will for the remainder of the weekend. Per chart review, appears [facility] EE'd Kristina on previous behavioral reports recieved; not a point in time evaluation. Documentation also reports Kristina was brought here by Teresa PIERCE, though the otr van cdl truck driver on Monday did not appear to be an officer of the law, or present herself as such. Kristina was calm, engaged appropriately per documentation and at time of this documentation has had no behavioral issues over the weekend. In fact, even though she reportedly meets criteria for Involuntary status, she is reportedly not beleived to be a harm to herself or others, has no SI or HI so is not on a safety plan at [facility] or with a one on one. Judith [facility] noted Kristina could not stand, however CM observed Krsitina standing and walking for more than twenty minutes in the parkinglot on Monday.
[2023-02-20] MEDS: Apixaban 2.5 MG TAB PO ×2 (09:42→19:05)
[2023-02-20] MEDS: dilTIAZem CD 180 MG CAPCR 360 MG PO (09:42)
[2023-02-20] MEDS: Metoprolol 25 MG TAB PO ×2 (09:42→19:05)
--- NOTE | 2023-02-20 10:00 | NUR.NOTE ---
Nursing Note: Report received from domingo THOMAS
--- NOTE | 2023-02-20 11:04 | NUR.NOTE ---
Nursing Note: Mental health assessment personnel with patient at this time.
--- NOTE | 2023-02-20 12:56 | MHPN_ITS ---
Date of service: 02/20/23 Time of Service: 11:00 Mental Health Emergency Note Release [facility] release signed:: Yes Reason for Visit The client is an 87 year old, female who is homeless in [place] but has traveled per her [place] from [place] specify where [place]. She is known to witnesses as Kristina Carlos however, after her last stay at [facility] they were able to find a valid license that showed her name as Kristina Yee, which is the discr epancy in this Warrant/witness statements. The client first arrived in October of 2022 from [facility], brought to [facility] at her request, then again in December of 2022 where she was EE?d but it did not pass and so [facility] bought her a ticket to [place], and now today 02.17.2023 via [employer], as it was not showing in [employer] that she had a no trespass form [employer] as well. She is homeless with no natural supports in the area despite growing up here. She had a brother in [facility] that in 2019 who was a book store associate for [employer] ([employer]). The client is visually impaired however, states that she can see shapes and objects. She is presenting as unable to stand on her own or navigate on her own without assistance. Client is seen in person at [facility] ED for 1st daily QMHP assessment. In the last 2 weeks has the pt presented for ES prior to today?: Yes, presented at [facility] ED, ED at another facility and [facility] Impression The client is an 87 year old, female who is homeless in [place] but has traveled [place] her [place] from [place] specify where [place]. She is known to witnesses as Kristina Gonzalez however, after her last stay at [facility] they were able to find a valid license that showed her name as Krisitna Yee, which is the discrepancy in this Warrant/witness statements. The client first arrived in October of 2022 from [facility], brought to [facility] at her request, then again in December of 2022 where she was EE?d but it did not pass and so [facility] bought her a ticket to [place]. On 02.17.2023 she arrived back to [facility] via [employer], as it was not showing in [employer] that she had a no trespass from them as well. She is homeless with no natural supports in the area despite growing up here and family living close by. She had a brother in [facility] that in 2019 who was a book store associate for [facility] ([employer]). The client is visually impaired however, states that she can see shapes and objects. She is presenting as unable to stand on her own or navigate on her own without assistance. When this clinician enters the clients room she is observed to be laying down on the hospital bed dressed in paper pants and a sweatshirt and flannel shirt on the top. The client presents laying down in the hospital bed when this scientific technical writer and technical support intern Per enter the room. Client presents as being polite throughout the majority of the assessment. The client states that she just wants to get back to [place] to see her elderly son whom is dying. The client is not able to tell this scientific technical writer how she would get back to [place], other than stating that our agency would need to help to fund her ticket back to [place]. The clients thought process and presentation remain consistent and the client still appears to be a person that is in need of treatment. Plan/Disposition Recommended Disposition: Hospitalization facilities contacted. Plan: The client will remain at [facility] pending next steps from [facility] this afternoon. The client is still on involuntary status and will be assessed 2x daily by [facility] until placement is secured of a safe disposition is made for this client. Person reported agreement to plan: No Reports/communication Outcome discussed with: ED/Personnel (Verbal passover given to ED provider Dr. Knox. )
--- NOTE | 2023-02-20 12:56 | PDOC.MHPN2 ---
Date of service: 02/20/23 Time of Service: 11:00 Mental Health Emergency Note Release [facility] release signed:: Yes Reason for Visit The client is an 87 year old, female who is homeless in [place] but has traveled per her report from [place] but would not specify where in [place]. She is known to witnesses as Kristina Carlos however, after her last stay at [facility] they were able to find a valid license that showed her name as Kristina Yee, which is the discrepancy in this Warrant/witness statements. The client first arrived in October of 2022 from [facility], brought to [facility] at her request, then again in December of 2022 where she was EE?d but it did not pass and so [facility] bought her a ticket to [place], and now today 02.17.2023 via [employer], as it was not showing in [employer] that she had a no trespass form them as well. She is homeless with no natural supports in the area despite growing up here. She had a brother in [facility] that in 2019 who was a rehabilitation aide/scheduler for [facility] ([employer]). The client is visually impaired however, states that she can see shapes and objects. She is presenting as unable to stand on her own or navigate on her own without assistance. Client is seen in person at [facility] ED for 1st daily QMHP assessment. In the last 2 weeks has the pt presented for ES prior to today?: Yes, presented at [facility] ED, ED at another facility and [facility] Impression The client is an 87 year old, female who is homeless in [place] but has traveled per her report from [place] but would not specify where in [place]. She is known to witnesses as Kristina Gonzalez however, after her last stay at [facility] they were able to find a valid license that showed her name as Kristina Yee, which is the discrepancy in this Warrant/witness statements. The client first arrived in October of 2022 from [facility], brought to [facility] at her request, then again in December of 2022 where she was EE?d but it did not pass and so [facility] bought her a ticket to [place]. On 02.17.2023 she arrived back to [facility] via [employer], as it was not showing in [employer] that she had a no trespass from them as well. She is homeless with no natural supports in the area despite growing up here and family living close by. She had a brother in [facility] that in 2019 who was a rehabilitation aide/scheduler for [facility] ([employer]). The client is visually impaired however, states that she can see shapes and objects. She is presenting as unable to stand on her own or navigate on her own without assistance. When this clinician enters the clients room she is observed to be laying down on the hospital bed dressed in paper pants and a sweatshirt and flannel shirt on the top. The client presents laying down in the hospital bed when this television writer and internet designer Per enter the room. Client presents as being polite throughout the majority of the assessment. The client states that she just wants to get back to [place] to see her elderly son whom is dying. The client is not able to tell this television writer how she would get back to [place], other than stating that our agency would need to help to fund her ticket back to [place]. The clients thought process and presentation remain consistent and the client still appears to be a person that is in need of treatment. Plan/Disposition Recommended Disposition: Hospitalization facilities contacted. Plan: The client will remain at [facility] pending next steps from [facility] this afternoon. The client is still on involuntary status and will be assessed 2x daily by [facility] until placement is secured of a safe disposition is made for this client. Person reported agreement to plan: No Reports/communication Outcome discussed with: ED/Personnel (Verbal passover given to ED provider Dr. Knox. )
[2023-02-20 19:00] VITALS: BP 112/70; PULSE 68; RESP 16; TEMP 36.4; O2SAT 98
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
[2023-02-21] MEDS: Apixaban 2.5 MG TAB PO ×2 (09:01→20:39)
[2023-02-21] MEDS: dilTIAZem CD 180 MG CAPCR 360 MG PO (09:02)
[2023-02-21] MEDS: Metoprolol 25 MG TAB PO ×2 (09:02→20:41)
[2023-02-21 09:11] VITALS: BP 112/67; PULSE 67; RESP 18; TEMP 36.7; O2SAT 98
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
--- NOTE | 2023-02-21 13:35 | NUR.NOTE ---
Nursing Note:patient yelling out bathroom, Bathroom this RN took patient to bathroom. Asked patient to not yell in ED gave her a choice to either use the toilet every 2 hours; unless its an unavoidable bathroom emergency, or nursing can put commode in to room and she can use the commode when ever she would like. Patient choose to wait to be asked every 2 hours.
--- NOTE | 2023-02-21 14:01 | PDOC.MHPN2 ---
Date of service: 02/21/23 Time of Service: 14:01 Mental Health Emergency Note Release [facility] release signed:: Yes Reason for Visit The client is an 87 year old, female who is homeless in [place] but has traveled per her report from [place] but would not specify where in [place]. She is known to witnesses as Kristina Carlos however, after her last stay at [facility] they were able to find a valid license that showed her name as Kristina Yee, which is the discrepancy in this Warrant/witness statements. The client first arrived in October of 2022 from [facility], brought to [employer] at her request, then again in December of 2022 where she was EE?d but it did not pass and so [facility] bought her a ticket to [place], and now today 02.17.2023 via [employer], as it was not showing in [facility] that she had a no trespass form them as well. She is homeless with no natural supports in the area despite growing up here. She had a brother in [facility] that in 2018 who was a customer service cashier for [employer] ([employer]). The client is visually impaired however, states that she can see shapes and objects. She is presenting as unable to stand on her own or navigate on her own without assistance. Client is seen in person at [facility] ED for her first daily QMHP assessment of the day. In the last 2 weeks has the pt presented for ES prior to today?: Yes, presented at ED at another facility Additional Issues: Extreme Psychosis or extreme behavior is present: Yes Impression The client's clinical presentation has not changed in the day's that she has been at [facility]. She perseverates on needing to return to [place] to be with her sick son and has no financial means to get there. She is being quite nasty with her nurse this am as the nurse is setting boundaries and the client is not responding well to this. The client was informed when she ordered her breakfast that she order all the side drinks she needs as she will only get what she ordered and in between meals she will only get water. Therefore she declined her am meds. All those girls are on drugs and alcohol and are not walking with Dustin. She talked about going to [facility] and stated that her nephew went there and she called to see if she could co there and was told that she could not because she did not use drugs or alcohol. She stated Your wasting your time, my time and the doctors time by keeping me here. Plan/Disposition Recommended Disposition: Hospitalization facilities contacted. Plan: The client will remain at [facility] pending a plan being made with [facility]. Reports/communication Outcome discussed with: ED/Personnel
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
[2023-02-22] MEDS: dilTIAZem CD 180 MG CAPCR 360 MG PO (09:22)
[2023-02-22] MEDS: Metoprolol 25 MG TAB PO ×2 (09:22→20:27)
[2023-02-22] MEDS: Apixaban 2.5 MG TAB PO ×2 (09:22→20:27)
[2023-02-22 09:31] VITALS: BP 111/74; PULSE 85; TEMP 36.3
--- NOTE | 2023-02-22 10:40 | NUR.NOTE ---
Nursing Note: patient yelling out Doctor Daljit Doctor Daljit This RN came too room patient wanted mouth wash. RN offered to give her hospital supplied mouth wash Patient voiced she wanted mouth wash from a doctor. This RN told patient is is allowed to brush teeth and use mouth wash in the bathroom the next time it is time for her to use the toilet.
--- NOTE | 2023-02-22 10:44 | PDOC.MHPN2 ---
Date of service: 02/22/23 Time of Service: 08:30 Mental Health Emergency Note Release [facility] release signed:: No Reason for Visit The client is an 87 year old, female who is homeless in [place] but has traveled per her report from [place] but would not specify where in [place]. She is known to witnesses as Kristina Carlos however, after her last stay at [facility] they were able to find a valid license that showed her name as Kristina Yee, which is the discrepancy in this Warrant/witness statements. The client first arrived in October of 2022 from [facility], brought to [place] [employer] at her request, then again in December of 2022 where she was EE?d but it did not pass and so [facility] bought her a ticket to [place], and now today 02.17.2023 via [place] [employer], as it was not showing in [facility] that she had a no trespass form them as well. She is homeless with no natural supports in the area despite growing up here. She had a brother in [facility] that in 2018 who was a wall steamer for [facility] [facility] (Sylvain Hillman). The client is visually impaired however, states that she can see shapes and objects. She is presenting as unable to stand on her own or navigate on her own without assistance. Client is seen in person at [facility] ED for her first daily QMHP assessment of the day. In the last 2 weeks has the pt presented for ES prior to today?: Yes, presented at ED at another facility Additional Issues: Extreme Psychosis or extreme behavior is present: Yes Impression The client's clinical presentation has not changed in the day's that she has been at [facility]. She perseverates on needing to return to [place] to be with her sick son and has no financial means to get there. Per the report from the clients nurse this morning the client if escalating as she is holding firm boundaries with her and is now throwing items all over the floor. The client is presenting with irrational thinking and thoughts telling this tech writer that she wants to get the chief of justice from the [place] involved as she is being treated poorly and what everyone is doing to her is illegal. The client reports that her mood is wonderful and that her appetite and sleep have been good. The client denies SI/HI as well as intent and plan. Plan/Disposition Recommended Disposition: Hospitalization facilities contacted. Plan: The client will remain at [facility] pending a plan being made with [facility]. Reports/communication Outcome discussed with: ED/Personnel (Verbal passover given to ED provider Dr. Mesa)
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
--- NOTE | 2023-02-22 17:46 | NUR.NOTE ---
Nursing Note: this RN attempted to get patient's food order, patient was upset and yelling about tissues and the food that was available from kitchen. This RN gave patient the choice to stop yelling and order food at that time or wait and order when she felt more calm. Patient continued to yell at this RN. This typewriter mechanic returned to room 7 mins later, spoke to patient about ordering dinner. This RN called kitchen and ordered patients dinner.
--- NOTE | 2023-02-22 18:19 | NUR.NOTE ---
Nursing Note:MARINE STEAM FITTER HELPER brought meal in to patient's room. Kitchen did not have the vegetables available that patient ordered, a substitution was given to patient. Patient was demanding the MARINE STEAM FITTER HELPER and this RN to call the kitchen and make them give her what she originally ordered. It was explained to Kristina many different ways that the kitchen is unable to do this at this time. Patient told MARINE STEAM FITTER HELPER to just take the food away she wasn't going to eat it. balloon maker took the food outside of the room and set it aside in clean area to save fore patient if she changes her mind about the dinner tray.
[2023-02-23] MEDS: Metoprolol 25 MG TAB PO ×2 (03:34→09:30)
[2023-02-23 06:40] VITALS: BP 134/87; PULSE 67; RESP 14; TEMP 36.3; O2SAT 97
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
[2023-02-23 09:15] VITALS: BP 124/77; PULSE 135
[2023-02-23] MEDS: dilTIAZem CD 180 MG CAPCR 360 MG PO (09:21)
[2023-02-23] MEDS: Apixaban 2.5 MG TAB PO (09:21)
--- NOTE | 2023-02-23 09:22 | NUR.NOTE ---
Nursing Note: Per AUG PT received a dose of metoprolol 25mg in the evening of 02/22/2023 and again 02/23/2023 at 0334. PT states that she never received the dose at 0334 this am. This information was given to Dr. Mesa. PT's HR this morning was 135, Dr. Mesa approved this mornings dose of metoprolol 25mg at 0920.
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
--- NOTE | 2023-02-23 16:45 | CMDISCH_ITS ---
Date of service: 02/23/23 Time of Service: 16:45 LACE Index Scoring Tool Questions: Length of Stay (in days): 4 - 6 Was the patient admitted via the E.D.?: Yes E.D. Visits: 5 Answers: Total Score: 11 Risk of Readmission: High Risk Care Management Discharge Plan Reason for Hospitalization: Impaired decision making ability Discharge Plan: After being assessed by Dr. Drummond of [facility], Kristina is found to have capacity to make her own decisions. She additionally does not meet criteria for EE due to denying depressive, manic or psychotic symptoms and having no history of any psychiatric condition on record anywhere. Kristina is discharged back to the community. At her request, CM coordinates RCT transportation to [place], [place]. Patient/Family Education Needs: Review of discharge instructions. Services Needed at Discharge: Transportation ([facility] private combine driver)
== END 2023-02-23 13:56 | disposition home or self-care (01) ==
PROVIDERS: Emergency Provider Emergency Medicine
DX: F22 Delusional disorders (principal); F23 Brief psychotic disorder; H54.8 Legal blindness, as defined in USA; Z59.00 Homelessness unspecified; Z79.899 Other long term (current) drug therapy
CPT/HCPCS: 36415; 80053; 80307; 99285; 80320; 80329; 81003; 81015; 84439; 84443; 85025; 99284